=== PATIENT | male | born 1970 | race Caucasian/White ===

== ENCOUNTER 2020-08-01 09:00 | Outpatient (RCR) | payer OTHER, SELFPAY | END 2020-09-27 09:37 | disposition other institution (70) | LOC: HO.PT 09:00 | PROVIDERS: Visit Provider Hospitalist | DX: S76.111D Strain of right quadriceps muscle, fascia and tendon, subsequent encounter (principal) | CPT/HCPCS: 97110; 97112; 97140; 97162; 97530 ==

== ENCOUNTER 2020-10-20 11:35 | Outpatient (REF) | payer OTHER, SELFPAY ==
[2020-10-20 13:17] LABS: COVID-19 Test Negative (Negative)
== END 2020-10-20 11:36 | disposition home or self-care (01) ==
LOC: HO.EMPCOV 11:35
PROVIDERS: Visit Provider Internal Medicine
DX: Z20.822 Contact with and (suspected) exposure to COVID-19 (principal)
CPT/HCPCS: 36415; 87635; C9803

== ENCOUNTER 2021-08-17 11:09 | Emergency (ER) | payer OTHER, SELFPAY ==
--- NOTE | 2021-08-17 | ECG_ITS ---
Test Reason : cp Blood Pressure : / mmHG Vent. Rate : 087 BPM Atrial Rate : 087 BPM P-R Int : 150 ms QRS Dur : 076 ms QT Int : 362 ms P-R-T Axes : 059 028 057 degrees QTc Int : 435 ms Normal sinus rhythm Nonspecific ST abnormality Abnormal ECG No previous ECGs available Referred By: Generic ED Physician Electronically Signed By:Keith Arteaga
--- NOTE | ~2021-08-17 | XR_ITS ---
EXAMINATION: XR CHEST CLINICAL INFORMATION: Chest pain COMPARISON: Chest x-ray 12/30/2015 (report only) TECHNIQUE: 2 views of the chest were obtained. FINDINGS: The heart is normal in size. There is no lobar consolidation. No pleural effusion or pneumothorax. No acute osseous abnormality. XR/XR chest 2V IMPRESSION: No acute pulmonary pathology.
[2021-08-17 11:14] VITALS: BP 125/86; PULSE 75; RESP 16; TEMP 36.3; O2SAT 99; BMI 29.5
--- NOTE | 2021-08-17 11:44 | ED_ITS ---
HPI - Chest Pain General Chief Complaint: Chest Pain Stated Complaint: chest pain Time Seen by Provider: 08/17/21 11:32 Source: patient History of Present Illness HPI narrative: Patient states he has had symptoms that started yesterday. The 1st he noticed some paresthesia like symptoms in his left thigh. That resolved. He went to his daughter's basketball game and felt lightheaded as if he was going to pass out. This sensation resolved on its own. He has also been having chest discomfort that he states feels like his typical indigestion which has been constant since yesterday at about the same time. He states he feels, like a pressure. No nausea vomiting. No alleviating or exacerbating factors No history of cardiac disease. History of prediabetes blood so far has not required medication No history of smoking No significant family history of acute coronary syndrome at a young age No history of thromboembolic disease in the patient or close family members No recent changes in health status No changes in activity Related Data Allergies Allergy/AdvReac Type Severity Reaction Status Date / Time No Known Allergies Allergy Verified 08/17/21 11:23 Review of Systems Constitutional: Comments: Awake alert no acute distress Cardiovascular: Comments: Chest discomfort is described Respiratory: Comments: No dyspnea Gastrointestinal: Comments: No nausea vomiting diarrhea recently. He states he did have an episode of diarrhea last week which resolved spontaneously Musculoskeletal: Comments: No calf pain or pedal edema Neurologic: Comments: No focal weakness. Transient paresthesia left eye yesterday. He does complain of intermittent paresthesias bilateral hands PMFSH Social History Social History Alcohol intake: current Alcohol intake frequency: a few times a week Patient Tobacco Use Status: Never used Tobacco Use of substances other than those prescribed or required for medical reasons: No Advance Directives: No Advance Directives Information Provided: No Physical Exam Vital Signs: Vital Signs: Last Vital Signs Temp 97.4 F 08/17/21 11:14 Pulse 73 08/17/21 12:25 Resp 18 08/17/21 12:25 BP 137/66 08/17/21 12:25 Pulse Ox 99 08/17/21 11:14 BMI result Body Mass Index 29.5 Const: Other: Awake and alert no acute distress HENMT: Other: No obvious jugular venous distention Chest: Other: Nontender Resp: Other: Clear and equal bilaterally Cardio: Other: Regular rate and rhythm without murmurs rubs or gallops GI: Other: Soft nontender Skin: Other: Warm pink and dry without rash or jaundice Neuro: Other: Alert and oriented x3. No focal neuro deficit Extrem: Other: No pedal edema or calf tenderness Course Course Course Narrative: Patient with chest pain and extremity paresthesias. Acute coronary syndrome Pulmonary embolism Musculoskeletal pain Gastroesophageal reflux disease Anxiety EKG normal sinus rhythm without obvious ischemic changes. Will obtain old EKG from his PCP for comparison Will order cardiac workup as well as thromboembolic workup starting with D-dimer Nitroglycerin sublingual and re-evaluation Nitroglycerin without effect 14:45. Workup In the emergency department is very reassuring. Serial troponins are normal. D-dimer is normal. Thyroid studies are normal as are other labs. Patient is otherwise comfortable and stable for discharge home with a final diagnosis of paresthesias MDM - Chest Pain Lab Data Result diagrams: 08/17/21 12:01 08/17/21 12:01 Labs: Lab Results 08/17/21 08/17/21 08/17/21 Range/Units 12: 12: 12:01 WBC 6.6 (4.8-10.8) X10*3/uL RBC 4.95 (4.60-5.80) X10*6/uL Hgb 14.3 (14.0-18.0) g/dl Hct 42.0 (42.0-52.0) % MCV 84.8 (80.0-98.0) fL MCH 28.9 (27.0-33.0) pg MCHC 34.0 (31.0-36.0) g/dl RDW 12.9 (11.0-16.0) % Plt Count 197 (160-400) X10*3/uL MPV 9.9 (9.4-12.4) fL Immature Gran % (Auto) 0.3 (0.0-0.4) % Neut % (Auto) 59.4 (45-73) % Lymph % (Auto) 28.5 (20-40) % [place] % (Auto) 8.5 (2-11) % Eos % (Auto) 2.4 (0-4) % Baso % (Auto) 0.9 (0-2) % Lymph # (Auto) 1.9 (1.2-4.9) X10*3/uL [place] # (Auto) 0.6 (0.1-1.2) X10*3/uL Eos # (Auto) 0.2 (0.0-0.4) X10*3/uL Baso # (Auto) 0.1 (0.0-0.2) X10*3/uL Abs Immat Gran (auto) 0.02 (0.00-0.03) X10*3/uL Absolute Neuts (auto) 3.9 (2.0-8.3) x10*3/uL Absolute Nucleated RBC 0.000 (0.0-0.012) X10*3/uL Nucleated RBC % (auto) 0.0 (0.0-0.2) /100WBC D-Dimer High Sensitivty NG/ML Sodium 138 (135-145) mmol/L Potassium 3.8 (3.3-5.1) mmol/L Chloride 105 (96-108) mmol/L Carbon Dioxide 27 (22-29) mmol/L Anion Gap 10 L (12-20) BUN 16 (9-16) mg/dL Creatinine 1.18 (0.5-1.4) mg/dL Estim Creat Clear Calc 89.1 Estimated GFR > 60 Random Glucose 119 H (60-115) mg/dL Calcium 9.5 (8.4-10.2) mg/dL Total Bilirubin 0.9 (0.0-1.0) mg/dL AST 28 (5-37) U/L ALT 30 (0-40) U/L Alkaline Phosphatase 98 (39-117) U/L Troponin I High Sens 5.3 (<3.5-35.0) ng/L B-Natriuretic Peptide 101 H (<100) pg/mL Total Protein 6.9 (6.5-8.0) g/dL Albumin 4.2 (3.5-5.0) g/dL Lipase 22 (8-78) U/L TSH (0.32-4.0) uIU/mL COVID-19 (ZOË) (Negative) COVID-19 Clin Com 08/17/21 08/17/21 08/17/21 Range/Units 12:01 12:01 12:01 WBC (4.8-10.8) X10*3/uL RBC (4.60-5.80) X10*6/uL Hgb (14.0-18.0) g/dl Hct (42.0-52.0) % MCV (80.0-98.0) fL MCH (27.0-33.0) pg MCHC (31.0-36.0) g/dl RDW (11.0-16.0) % Plt Count (160-400) X10*3/uL MPV (9.4-12.4) fL Immature Gran % (Auto) (0.0-0.4) % Neut % (Auto) (45-73) % Lymph % (Auto) (20-40) % [place] % (Auto) (2-11) % Eos % (Auto) (0-4) % Baso % (Auto) (0-2) % Lymph # (Auto) (1.2-4.9) X10*3/uL [place] # (Auto) (0.1-1.2) X10*3/uL Eos # (Auto) (0.0-0.4) X10*3/uL Baso # (Auto) (0.0-0.2) X10*3/uL Abs Immat Gran (auto) (0.00-0.03) X10*3/uL Absolute Neuts (auto) (2.0-8.3) x10*3/uL Absolute Nucleated RBC (0.0-0.012) X10*3/uL Nucleated RBC % (auto) (0.0-0.2) /100WBC D-Dimer High Sensitivty 174 NG/ML Sodium (135-145) mmol/L Potassium (3.3-5.1) mmol/L Chloride (96-108) mmol/L Carbon Dioxide (22-29) mmol/L Anion Gap (12-20) BUN (9-16) mg/dL Creatinine (0.5-1.4) mg/dL Estim Creat Clear Calc Estimated GFR Random Glucose (60-115) mg/dL Calcium (8.4-10.2) mg/dL Total Bilirubin (0.0-1.0) mg/dL AST (5-37) U/L ALT (0-40) U/L Alkaline Phosphatase (39-117) U/L Troponin I High Sens (<3.5-35.0) ng/L B-Natriuretic Peptide (<100) pg/mL Total Protein (6.5-8.0) g/dL Albumin (3.5-5.0) g/dL Lipase (8-78) U/L TSH 1.33 (0.32-4.0) uIU/mL COVID-19 (ZOË) Negative (Negative) COVID-19 Clin Com See Note 08/17/21 Range/Units 13:38 WBC (4.8-10.8) X10*3/uL RBC (4.60-5.80) X10*6/uL Hgb (14.0-18.0) g/dl Hct (42.0-52.0) % MCV (80.0-98.0) fL MCH (27.0-33.0) pg MCHC (31.0-36.0) g/dl RDW (11.0-16.0) % Plt Count (160-400) X10*3/uL MPV (9.4-12.4) fL Immature Gran % (Auto) (0.0-0.4) % Neut % (Auto) (45-73) % Lymph % (Auto) (20-40) % [place] % (Auto) (2-11) % Eos % (Auto) (0-4) % Baso % (Auto) (0-2) % Lymph # (Auto) (1.2-4.9) X10*3/uL [place] # (Auto) (0.1-1.2) X10*3/uL Eos # (Auto) (0.0-0.4) X10*3/uL Baso # (Auto) (0.0-0.2) X10*3/uL Abs Immat Gran (auto) (0.00-0.03) X10*3/uL Absolute Neuts (auto) (2.0-8.3) x10*3/uL Absolute Nucleated RBC (0.0-0.012) X10*3/uL Nucleated RBC % (auto) (0.0-0.2) /100WBC D-Dimer High Sensitivty NG/ML Sodium (135-145) mmol/L Potassium (3.3-5.1) mmol/L Chloride (96-108) mmol/L Carbon Dioxide (22-29) mmol/L Anion Gap (12-20) BUN (9-16) mg/dL Creatinine (0.5-1.4) mg/dL Estim Creat Clear Calc Estimated GFR Random Glucose (60-115) mg/dL Calcium (8.4-10.2) mg/dL Total Bilirubin (0.0-1.0) mg/dL AST (5-37) U/L ALT (0-40) U/L Alkaline Phosphatase (39-117) U/L Troponin I High Sens 4.3 (<3.5-35.0) ng/L B-Natriuretic Peptide (<100) pg/mL Total Protein (6.5-8.0) g/dL Albumin (3.5-5.0) g/dL Lipase (8-78) U/L TSH (0.32-4.0) uIU/mL COVID-19 (ZOË) (Negative) COVID-19 Clin Com Discharge Plan Discharge Clinical Impression: Atypical chest pain, Arm paresthesia, left, Arm paresthesia, right Patient Disposition: Home, Self-Care Instructions: Paresthesia (ED), Chest Pain (ED)
[2021-08-17] MEDS: 0.9 % Sodium Chloride 500 ML IV (12:03)
[2021-08-17 12:09] LABS: MANUAL DIFF FLAG NO
[2021-08-17] MEDS: Nitroglycerin 0.4 MG TAB.SUBL SUBLINGUAL (12:09)
[2021-08-17 12:16] LABS: Basophils Absolute Auto 0.1 X10*3/uL (0.0-0.2); Basophils Percent Auto 0.9 % (0-2); Eosinophils Absolute Auto 0.2 X10*3/uL (0.0-0.4); Eosinophils Percent Auto 2.4 % (0-4); Hemoglobin 14.3 g/dl (14.0-18.0); Imm Gran Abs Auto 0.02 X10*3/uL (0.00-0.03); Imm Gran Pct Auto 0.3 % (0.0-0.4); Lymphocytes Absolute Auto 1.9 X10*3/uL (1.2-4.9); Lymphocytes Percent Auto 28.5 % (20-40); Mean Corpuscular Hemoglobin 28.9 pg (27.0-33.0); Mean Corpuscular Volume 84.8 fL (80.0-98.0); Mean Platelet Volume 9.9 fL (9.4-12.4); Monocytes Absolute Auto 0.6 X10*3/uL (0.1-1.2); Monocytes Percent Auto 8.5 % (2-11); Neutrophils Absolute Auto 3.9 x10*3/uL (2.0-8.3); Neutrophils Percent Auto 59.4 % (45-73); Platelet Count 197 X10*3/uL (160-400); Red Blood Count 4.95 X10*6/uL (4.60-5.80); Red Cell Distribution Width 12.9 % (11.0-16.0); White Blood Count 6.6 X10*3/uL (4.8-10.8)
[2021-08-17 12:18] LABS: D Dimer High Sensitivity 174 NG/ML
[2021-08-17 12:25] VITALS: BP 137/66; PULSE 73; RESP 18
--- NOTE | 2021-08-17 12:25 | PC.NURSE ---
pt reports no change in the chest pain/pressure after the first nitro, pain at 4/10
[2021-08-17 12:30] LABS: Alanine Aminotransferase 30 U/L (0-40); Albumin Level 4.2 g/dL (3.5-5.0); Alkaline Phosphatase 98 U/L (39-117); Anion Gap 10 (12-20); Aspartate Amino Transferase 28 U/L (5-37); Bilirubin Total 0.9 mg/dL (0.0-1.0); Blood Urea Nitrogen 16 mg/dL (9-16); Calcium 9.5 mg/dL (8.4-10.2); Carbon Dioxide 27 mmol/L (22-29); Chloride 105 mmol/L (96-108); Creatinine Clr Calc Pharmacy 89.1; Estimated Glomerular Filt Rate > 60; Glucose Random 119 mg/dL (60-115); Lipase 22 U/L (8-78); Potassium 3.8 mmol/L (3.3-5.1); Sodium 138 mmol/L (135-145); Total Protein 6.9 g/dL (6.5-8.0)
[2021-08-17 12:33] LABS: COVID-19 Test Negative (Negative); IDNOW Serial# 9DD0AD1C
[2021-08-17 12:34] LABS: B Type Natriuretic Peptide 101 pg/mL (<100); Troponin-I High Sensitivity 5.3 ng/L (<3.5-35.0)
[2021-08-17 12:49] LABS: TSH reflex Free T4 1.33 uIU/mL (0.32-4.0)
[2021-08-17] MEDS: Magnesium Hydrox/Alum Hydrox 30 ML ORAL.SUSP PO (12:51)
[2021-08-17] MEDS: Lidocaine HCl Viscous 2 % 15 ML SOLUTION PO (12:51)
[2021-08-17 14:20] LABS: Troponin-I High Sensitivity 4.3 ng/L (<3.5-35.0)
[2021-08-17 15:15] VITALS: BP 125/69; PULSE 68; RESP 15; TEMP 36.6; O2SAT 97
== END 2021-08-17 15:52 | disposition home or self-care (01) ==
PROVIDERS: Emergency Provider Emergency Medicine; PCP Hospitalist
DX: R07.89 Other chest pain (principal); R20.2 Paresthesia of skin; Z20.822 Contact with and (suspected) exposure to COVID-19
CPT/HCPCS: 36415; 71046; 80053; 83690; 83880; 84443; 84484; 85025; 85379; 87635; 93005; 96360; 99284; 99285

== ENCOUNTER 2022-06-15 08:45 | Outpatient (REF) | payer OTHER, SELFPAY ==
[2022-06-15 09:41] LABS: Estimated Average Glucose 117 mg/dL; Hemoglobin A1C 151.4117 umol/L; Hemoglobin A1c % 5.7 %
[2022-06-15 10:28] LABS: Anion Gap 11 (12-20); Chloride 107 mmol/L (96-108); Prostate Specific Antigen 1.66 ng/mL (<0.05-4.0)
[2022-06-15 10:31] LABS: Alanine Aminotransferase 36 U/L (0-40); Albumin Level 4.2 g/dL (3.5-5.0); Alkaline Phosphatase 98 U/L (39-117); Aspartate Amino Transferase 27 U/L (5-37); Bilirubin Total 0.5 mg/dL (0.0-1.0); Blood Urea Nitrogen 17 mg/dL (9-16); Calcium 9.2 mg/dL (8.4-10.2); Carbon Dioxide 27 mmol/L (22-29); Cholesterol 237 mg/dL; Estimated Glomerular Filt Rate > 60; Glucose Random 103 mg/dL (60-115); HDL Cholesterol 36 mg/dL; LDL Cholesterol Calculated 149 mg/dl; Potassium 4.1 mmol/L (3.3-5.1); Sodium 141 mmol/L (135-145); Total Protein 6.8 g/dL (6.5-8.0); Triglycerides 264 mg/dL; Uric Acid 4.5 mg/dL (3.4-7.0)
== END 2022-06-15 08:46 | disposition home or self-care (01) ==
LOC: HO.LAB 08:45
PROVIDERS: Visit Provider Family Medicine
DX: Z00.00 Encounter for general adult medical examination without abnormal findings (principal); M10.9 Gout, unspecified; E78.5 Hyperlipidemia, unspecified; Z12.5 Encounter for screening for malignant neoplasm of prostate
CPT/HCPCS: 36415; 80053; 80061; 83036; 84153; 84550

== ENCOUNTER 2023-04-28 12:25 | Outpatient (REF) | payer OTHER, SELFPAY ==
[2023-04-28 12:50] LABS: MANUAL DIFF FLAG NO
[2023-04-28 13:43] LABS: Basophils Absolute Auto 0.1 X10*3/uL (0.0-0.2); Basophils Percent Auto 1.1 % (0-2); Eosinophils Absolute Auto 0.1 X10*3/uL (0.0-0.4); Eosinophils Percent Auto 2.2 % (0-4); Hematocrit 43.3 % (42.0-52.0); Hemoglobin 14.8 g/dl (14.0-18.0); Imm Gran Abs Auto 0.02 X10*3/uL (0.00-0.03); Imm Gran Pct Auto 0.4 % (0.0-0.4); Lymphocytes Absolute Auto 1.1 X10*3/uL (1.2-4.9); Lymphocytes Percent Auto 23.2 % (20-40); Mean Corpuscular HGB Conc 34.2 g/dl (31.0-36.0); Mean Corpuscular Hemoglobin 29.3 pg (27.0-33.0); Mean Corpuscular Volume 85.7 fL (80.0-98.0); Mean Platelet Volume 10.5 fL (9.4-12.4); Monocytes Absolute Auto 0.5 X10*3/uL (0.1-1.2); Monocytes Percent Auto 10.3 % (2-11); Neutrophils Absolute Auto 2.9 x10*3/uL (2.0-8.3); Neutrophils Percent Auto 62.8 % (45-73); Platelet Count 189 X10*3/uL (160-400); Red Blood Count 5.05 X10*6/uL (4.60-5.80); Red Cell Distribution Width 12.9 % (11.0-16.0); White Blood Count 4.6 X10*3/uL (4.8-10.8)
[2023-04-28 14:55] LABS: Alanine Aminotransferase 34 U/L (0-40); Aspartate Amino Transferase 29 U/L (5-37); Estimated Glomerular Filt Rate > 60; Uric Acid 4.8 mg/dL (3.4-7.0)
== END 2023-04-28 12:26 | disposition home or self-care (01) ==
LOC: HO.LAB 12:25
PROVIDERS: Visit Provider Internal Medicine Rheumatology
DX: M10.9 Gout, unspecified (principal)
CPT/HCPCS: 36415; 82565; 84450; 84460; 84550; 85025

== ENCOUNTER 2023-06-29 07:54 | Outpatient (REF) | payer OTHER, SELFPAY ==
[2023-06-29 08:15] LABS: MANUAL DIFF FLAG NO
[2023-06-29 09:10] LABS: Basophils Absolute Auto 0.1 X10*3/uL (0.0-0.2); Basophils Percent Auto 1.1 % (0-2); Eosinophils Absolute Auto 0.2 X10*3/uL (0.0-0.4); Eosinophils Percent Auto 3.2 % (0-4); Hematocrit 44.6 % (42.0-52.0); Hemoglobin 15.1 g/dl (14.0-18.0); Imm Gran Abs Auto 0.03 X10*3/uL (0.00-0.03); Imm Gran Pct Auto 0.5 % (0.0-0.4); Lymphocytes Absolute Auto 1.7 X10*3/uL (1.2-4.9); Lymphocytes Percent Auto 30.6 % (20-40); Mean Corpuscular HGB Conc 33.9 g/dl (31.0-36.0); Mean Corpuscular Volume 85.6 fL (80.0-98.0); Mean Platelet Volume 10.5 fL (9.4-12.4); Monocytes Absolute Auto 0.5 X10*3/uL (0.1-1.2); Monocytes Percent Auto 8.5 % (2-11); Neutrophils Absolute Auto 3.2 x10*3/uL (2.0-8.3); Neutrophils Percent Auto 56.1 % (45-73); Platelet Count 202 X10*3/uL (160-400); Red Blood Count 5.21 X10*6/uL (4.60-5.80); Red Cell Distribution Width 13.2 % (11.0-16.0); White Blood Count 5.6 X10*3/uL (4.8-10.8)
[2023-06-29 09:47] LABS: Alanine Aminotransferase 29 U/L (0-40); Alkaline Phosphatase 94 U/L (39-117); Anion Gap 12 (12-20); Aspartate Amino Transferase 25 U/L (5-37); Bilirubin Total 0.7 mg/dL (0.0-1.0); Blood Urea Nitrogen 19 mg/dL (9-16); Calcium 9.5 mg/dL (8.4-10.2); Carbon Dioxide 26 mmol/L (22-29); Chloride 107 mmol/L (96-108); Cholesterol 225 mg/dL (<200); Estimated Glomerular Filt Rate > 60; Glucose Random 109 mg/dL (60-115); HDL Cholesterol 52 mg/dL (>40); LDL Cholesterol Calculated 143 mg/dL (<100); Potassium 4.2 mmol/L (3.3-5.1); Sodium 141 mmol/L (135-145); Triglycerides 153 mg/dL (<150)
== END 2023-06-29 07:55 | disposition home or self-care (01) ==
LOC: HO.LAB 07:54
PROVIDERS: Visit Provider Family Medicine
DX: Z00.00 Encounter for general adult medical examination without abnormal findings (principal); Z12.5 Encounter for screening for malignant neoplasm of prostate; E78.5 Hyperlipidemia, unspecified; R07.89 Other chest pain
CPT/HCPCS: 36415; 80053; 80061; 84153; 85025

== ENCOUNTER → 2023-07-08 08:48 | Outpatient (REF) | payer OTHER, SELFPAY ==
--- NOTE | 2023-07-08 08:52 | CA_ITS ---
Acquisition Time: 2023-07-08 09:14:12 Total Exercise Time: 00:09:39 Test Indications: CP Medications: SEE H Protocol: TAN Max HR: 142 BPM 85% of Pred: 166 BPM Max BP: 138/078 mmHG Max Work Load: 11.1 METS Exercisde stress trest with exercise 9 min 39 sec of Tan protocol, achieving 85% MPHR, without anginal symptoms, with isolated PACs during exercise then frequent PACs and short atrial runs, up to 3 beats, in recovery ( patient reports this is the heart palpitations that he feels at times), with normotensive response to exercise, with EKG changes meeting criteria for ischemia: 1.5 - [address] depression inferiorly and V5-V6 with gradual improvement in recovery. Test reviewed with Dr Cho. Referred By: Titus Sims Overread By: RADHA PITT
== END ==
LOC: HO.CARD 08:48
PROVIDERS: PCP Hospitalist; Visit Provider Family Medicine
DX: R07.89 Other chest pain (principal); E78.5 Hyperlipidemia, unspecified
CPT/HCPCS: 93005; 93017

== ENCOUNTER 2023-07-08 13:36 | Outpatient (AMB) | payer OTHER, SELFPAY ==
[2023-07-08 13:39] VITALS: BP 140/60; PULSE 66; BMI 30.1
--- NOTE | 2023-07-08 13:39 | A.OFFVIS_ITS ---
Intake Vital Signs 07/08/23 13:39 Height 6 ft Weight 222 lb 3.615 oz BMI 30.1 BP 140/60 H Blood Pressure Location Lt brachial Position Sitting Pulse 66 Intake Visit Reasons: NPV/abnormal stress test Intake Note: NPV/ pt its feeling ok Stores Clerk Required: No Accompanied by: Self / Same As Patient Allergies No Known Allergies Allergy (Verified 08/17/21 11:23) Medication List - Last Reconciled 07/08/23 by Moses Cho MD allopurinol 300 mg PO DAILY HPI HPI Comments History of Present Illness Details Javier is here for consultation regarding an abnormal stress test. It seems that he has had chest pains going back many years. It was always felt that it was gastric in nature any takes things like baking soda and generally makes him feel better. These pains happen during times of anxiety, dietary intake extra. Has never happened with exertion. In fact when he is actually doing something physical he states the pain gets better goes away. Any case, he was referred for a stress test and he did not have any chest pain during the stress test but there was clear-cut ST depression and hence it was reported as abnormal and referred here for urgent consultation. Patient himself does not have any coronary disease or myocardial infarction or cardiomyopathy or in fact any other cardiac issues in the past. He states he has a large extended family and lot of them do have cardiac issues. However, nothing significant from coronary standpoint in the first-degree relatives. Otherwise, he exercise regularly and for the most part he feels fine apart from some muscle aches from pulling/pushing weight is extra. He also feels some palpitations off and on and he feels that that started after COVID. Overall, he is quite concerned about the stress test and any cardiac complications. [facility] Family History (Updated 07/08/23 @ 14:04 by Moses Cho MD) Father Atrial fibrillation Mother Parkinson disease Social History Alcohol intake: current Alcohol intake frequency: a few times a week Patient Tobacco Use Status: Never used Tobacco Review of Systems Const Reports chills, Reports fatigue, Reports fever(s), Reports frequent falls, Reports weakness, Reports weight gain and Reports weight loss ENT Reports dizziness Card Reports chest pain, Reports leg edema, Reports lightheadedness, Reports palpitations, Reports dyspnea, Reports dyspnea on exertion and Reports orthopnea Resp Reports cough, Reports dyspnea and Reports dyspnea on exertion GI Reports bloating and Reports change in bowel habits Musc Reports muscle weakness, Reports numbness and Reports tingling Neuro Reports dizziness, Reports frequent falls, Reports numbness, Reports tingling and Reports weakness Endo Reports fatigue and Reports palpitations Physical Exam Vital Signs: Last Vital Signs Pulse 66 07/08/23 13:39 BP 140/60 H 07/08/23 13:39 BMI result Body Mass Index 30.1 Const General: comfortable and no acute distress Orientation/consciousness: patient oriented x3 HEENT Other: Unremarkable Head: Yes normal to inspection Neck Neck: Yes normal visual inspection Chest Chest palpation & inspection: normal inspection of the chest Resp Auscultation: clear to auscultation bilaterally Cardio Palpation: normal PMI Heart sounds: S1 normal heart sound present, S2 normal heart sound present, no gallops, no murmurs and no rubs GI Palpation (GI): Soft to palpation Back/Spine/Pelvis Other: unremarkable Skin General skin exam: no rashes or lesions noted Neuro General: patient oriented x3 Extrem General: Yes normal to inspection Psych Mental Status: mental status grossly normal Office Procedures EKG Details: EKG with sinus rhythm at 66/Min; nonspecific ST-T changes; [place] [id number], Complete Assessment & Plan Assessment & Plan (1) Precordial chest pain: Code(s): R07.2 - Precordial pain (2) Abnormal stress test: Code(s): R94.39 - Abnormal result of other cardiovascular function study Plan His chest pain is atypical and nonexertional and not consistent with angina. I reviewed the exercise stress test including the EKG strips. There is significant ST depression noted during peak exercise but it starts some time in stage II. Also seen in early recovery. There were also some PACs. Findings discussed with patient. There is a mismatch between the symptoms and the EKG findings as he had absolutely no chest pain and in fact was able to exercise for 11.1 METS. Even otherwise, his chest pain description is not consistent with angina and he actually feels better with activity. We discussed about further options. Recommend coronary CTA but he is not comfortable waiting for a few weeks as he states he gets extremely anxious. Hence we can plan to start with an exercise stress echocardiogram as next step which would be quicker. Based on findings, we will decide if we need to also pursue coronary CTA or not. Will also complete a transthoracic echocardiogram for LV function, valvular assessment and aorta. Will arrange follow-up after these are completed. Patient is comfortable this plan. While testing is being completed, advised to avoid any strenuous physical activity. With regard to the palpitations, probably from supraventricular ectopy. We can assess that with a Holter in due course. Orders: Orders CA echo stress exercise Today R07.2 - Precordial pain CA echo transthoracic complete Today I25.10 - Atherosclerotic heart disease of [place] coronary artery without angina pectoris, R07.2 - Precordial pain Coding Level of Care Code New Pt Level 4 (30536) Diagnoses Precordial chest pain R07.2 Abnormal stress test R94.39 CPT Codes EKG - CPT: 69727-[id number], Complete ([id number])
== END 2023-07-08 14:07 | disposition home or self-care (01) ==
PROVIDERS: PCP Hospitalist; Visit Provider Internal Medicine
DX: R07.2 Precordial pain (principal); R94.39 Abnormal result of other cardiovascular function study; R94.31 Abnormal electrocardiogram [ECG] [EKG]; I49.1 Atrial premature depolarization
CPT/HCPCS: 93010; 93016; 93018; 99204

== ENCOUNTER → 2023-07-13 08:58 | Outpatient (REF) | payer OTHER, SELFPAY | LOC: HO.CARD 08:58 | PROVIDERS: PCP Family Medicine; Visit Provider Internal Medicine | DX: R07.2 Precordial pain (principal); I25.10 Atherosclerotic heart disease of native coronary artery without angina pectoris | CPT/HCPCS: 93306; 93356 ==

== ENCOUNTER → 2023-07-13 09:00 | Outpatient (BNV) | payer OTHER, SELFPAY | PROVIDERS: PCP Family Medicine; Visit Provider Internal Medicine Cardiovascular Disease | DX: I35.1 Nonrheumatic aortic (valve) insufficiency (principal) | CPT/HCPCS: 93306 ==

== ENCOUNTER → 2023-07-18 10:51 | Outpatient (REF) | payer OTHER, SELFPAY ==
--- NOTE | 2023-07-18 10:53 | CA_ITS ---
Acquisition Time: 2023-07-18 11:02:06 Total Exercise Time: 00:13:04 Test Indications: ABN ETT Medications: SEE H Protocol: TAN Max HR: 155 BPM 93% of Pred: 166 BPM Max BP: 172/058 mmHG Max Work Load: 15.2 METS Exercise stress test exercise 13 min 4 sec of Tan protocol achieving 93% MPHR, without anginal symptoms, with isolated PACs, with normotensive response to exercise, with horizontal depressions in lead 2, 3, aVF, & V4 and downsloping in V5-V6. Echo images obtained by tech at rest and immedateily post peak exercise. Definity contrast used. Test reviewed with Dr. Phillips Referred By: Moses Cho Overread By: Hilda Lamb
== END ==
LOC: HO.CARD 10:51
PROVIDERS: PCP Family Medicine; Visit Provider Internal Medicine
DX: R07.2 Precordial pain (principal)
CPT/HCPCS: 93350; Q9957

== ENCOUNTER → 2023-07-18 10:53 | Outpatient (BNV) | payer OTHER, SELFPAY | PROVIDERS: PCP Family Medicine; Visit Provider Nurse Practitioner | DX: R94.39 Abnormal result of other cardiovascular function study (principal) | CPT/HCPCS: 93350 ==

== ENCOUNTER 2023-07-21 10:41 | Outpatient (AMB) | payer OTHER, SELFPAY ==
[2023-07-21 10:44] VITALS: BP 142/70; PULSE 68; BMI 29.8
--- NOTE | 2023-07-21 10:44 | A.OFFVIS_ITS ---
Intake Vital Signs 07/21/23 10:44 Height 6 ft Weight 220 lb 0.341 oz BMI 29.8 BP 142/70 H Blood Pressure Location Lt brachial Position Sitting Pulse 68 Intake Visit Reasons: follow up Intake Note: follow up Pest Controller Required: No Accompanied by: Self / Same As Patient Allergies No Known Allergies Allergy (Verified 07/21/23 10:45) Medication List - Last Reconciled 07/21/23 by Moses Cho MD allopurinol 300 mg PO DAILY HPI HPI Comments History of Present Illness Details Javier returns for follow-up. Recently seen in consultation regarding abnormal stress test. It seems that he has had chest pains going back many years. It was always felt that it was gastric in nature any takes things like baking soda and generally makes him feel better. These pains happen during times of anxiety, dietary intake extra. Has never happened with exertion. In fact when he is actually doing something physical he states the pain gets better and goes away. Any case, he was referred for a stress test and he did not have any chest pain during the stress test but there was clear-cut ST depression and hence it was reported as abnormal and referred here for urgent consultation. Patient himself does not have any coronary disease or myocardial infarction or cardiomyopathy or in fact any other cardiac issues in the past. He states he h as a large extended family and lot of them do have cardiac issues. However, nothing significant from coronary standpoint in the first-degree relatives. Otherwise, he exercise regularly and for the most part he feels fine apart from some muscle aches from pulling/pushing weight is extra. He also feels some palpitations off and on and he feels that that started after COVID. Since last seen, he has completed a 2D echocardiogram as well as stress echocardiogram. No new issues. [facility] Surgical History (Updated 07/21/23 @ 10:45 by Li Pino) No pertinent past surgical history Family History Father Atrial fibrillation Mother Parkinson disease Social History Alcohol intake: current Alcohol intake frequency: a few times a week Patient Tobacco Use Status: Never used Tobacco Review of Systems Const Denies weakness ENT Denies dizziness Card Denies chest pain, Denies chest pain with activity, Denies syncope, Denies rapid heart rate, Denies pedal edema, Denies edema, Denies leg edema, Denies lightheadedness, Denies palpitations, Denies dyspnea, Denies dyspnea on exertion and Denies orthopnea Resp Denies cough, Denies dyspnea and Denies dyspnea on exertion GI Denies hematochezia and Denies change in stool character Musc Denies abnormal gait, Denies muscle cramps, Denies muscle weakness, Denies numbness, Denies radiating pain into limb and Denies tingling Neuro Denies abnormal gait, Denies dizziness, Denies syncope, Denies numbness, Denies tingling and Denies weakness Endo Denies palpitations Physical Exam Vital Signs: Last Vital Signs Pulse 68 07/21/23 10:44 BP 142/70 H 07/21/23 10:44 BMI result Body Mass Index 29.8 Const General: comfortable and no acute distress Orientation/consciousness: patient oriented x3 HEENT Other: Unremarkable Head: Yes normal to inspection Neck Neck: Yes normal visual inspection Chest Chest palpation & inspection: normal inspection of the chest Resp Auscultation: clear to auscultation bilaterally Cardio Palpation: normal PMI Heart sounds: S1 normal heart sound present, S2 normal heart sound present, no gallops, no murmurs and no rubs GI Palpation (GI): Soft to palpation Back/Spine/Pelvis Other: unremarkable Skin General skin exam: no rashes or lesions noted Neuro General: patient oriented x3 Extrem General: Yes normal to inspection Psych Mental Status: mental status grossly normal Assessment & Plan Assessment & Plan (1) Precordial chest pain: Code(s): R07.2 - Precordial pain (2) Abnormal stress test: Code(s): R94.39 - Abnormal result of other cardiovascular function study (3) Ascending aorta dilatation: Code(s): I77.810 - Thoracic aortic ectasia Plan Clinically, his chest pain is atypical and nonexertional and not consistent with angina. In the transthoracic echocardiogram, LVEF of 60-65%. Mild left ventricle hypertrophy. Normal peak global longitudinal strain. There is description of inferior wall motion abnormality but upon my review I think it is within normal limits. In the exercise stress echocardiogram, he did almost 15 METS on Tor protocol. He did not have any angina. There were ST-T changes in the EKG with depression but the echocardiographic component did not show any suggestion of stress- induced wall motion abnormality. Diastolic parameters showed appropriate changes with exercise. At rest, there was borderline pulmonary artery pressure and there was slight increase with exercise but not worrisome. Overall, he does have some baseline ST-T changes in the EKG which gets worse with exercise but no clinical or echocardiographic evidence of obstructive CAD. As he is still concerned about any possibility of underlying CAD due to the EKG findings, we will proceed with coronary CTA for further evaluation. Additionally, there is evidence of slight LVH which could be related to history of obesity in the past. Also he might just have some anxiety causing high blood pressures in the office but he can check them at home to ensure there is no resting hypertension. On the echocardiogram, there is also slight aortic dilatation at 4 cm. Again we went over this in detail. Can get coronary CTA as above which should also image the aorta as well. Because of the slight pulmonary hypertension, snoring at nighttime, get a home sleep study. Patient agreeable with the above plan. We can see him back after testing. Total time spent including review of data, counseling, documentation, coordination of care-34 minutes. Orders: Orders RT home sleep study Today G47.33 - Obstructive sleep apnea (adult) (pediatric) CT Cardiac Coronary Angio Today I25.10 - Atherosclerotic heart disease of [place] coronary artery without angina pectoris, I77.810 - Thoracic aortic ectasia Coding Level of Care Code Est Pt Level 4 (60477) Diagnoses Precordial chest pain R07.2 Abnormal stress test R94.39 Ascending aorta dilatation I77.810
== END 2023-07-21 11:13 | disposition home or self-care (01) ==
PROVIDERS: PCP Family Medicine; Visit Provider Internal Medicine
DX: R07.2 Precordial pain (principal); R94.39 Abnormal result of other cardiovascular function study; I77.810 Thoracic aortic ectasia
CPT/HCPCS: 99214

== ENCOUNTER → 2023-07-21 10:41 | Outpatient (BNVA) | payer OTHER, SELFPAY | PROVIDERS: PCP Family Medicine; Visit Provider Internal Medicine ==

== ENCOUNTER → 2023-07-26 13:33 | Outpatient (REF) | payer OTHER, SELFPAY | LOC: HO.SL 13:33 | PROVIDERS: PCP Family Medicine; Visit Provider Internal Medicine | DX: G47.33 Obstructive sleep apnea (adult) (pediatric) (principal) | CPT/HCPCS: 95806 ==

== ENCOUNTER → 2023-07-26 13:55 | Outpatient (BNV) | payer OTHER, SELFPAY | PROVIDERS: PCP Family Medicine; Visit Provider Internal Medicine | DX: R06.83 Snoring (principal) | CPT/HCPCS: 95806 ==

== ENCOUNTER → 2023-08-22 11:08 | Outpatient (REF) | payer OTHER, SELFPAY | LOC: HO.SL 11:08 | PROVIDERS: Visit Provider Internal Medicine | DX: R06.83 Snoring (principal) | CPT/HCPCS: 95806 ==

== ENCOUNTER → 2023-08-22 11:15 | Outpatient (BNV) | payer OTHER, SELFPAY | PROVIDERS: Visit Provider Internal Medicine | DX: R06.83 Snoring (principal) | CPT/HCPCS: 95806 ==

== ENCOUNTER 2023-09-05 13:25 | Outpatient (AMB) | payer OTHER, SELFPAY ==
--- NOTE | 2023-09-05 13:27 | A.OFFVIS_ITS ---
Intake Vital Signs 09/05/23 13:29 Height 6 ft Weight 220 lb 0.341 oz BMI 29.8 BP 120/68 Blood Pressure Location Lt brachial Position Sitting Pulse 69 Intake Visit Reasons: follow up testing Intake Note: follow up Accompanied by: Self / Same As Patient Allergies No Known Allergies Allergy (Verified 09/05/23 13:29) Medication List - Last Reconciled 09/05/23 by Moses Cho MD allopurinol 300 mg PO DAILY HPI HPI Comments History of Present Illness Details Javier returns for follow-up. Recently seen in consultation regarding abnormal stress test. It seems that he has had chest pains going back many years. It was always felt that it was gastric in nature as when he takes things like baking soda it generally makes him feel better. These pains happen during times of anxiety, dietary intake extra. Has never happened with exertion. In fact when he is actually doing something physical he states the pain gets better and goes away. Any case, he was referred for a stress test and he did not have any chest pain during the stress test but there was clear-cut ST depression and hence it was reported as abnormal and referred here for urgent consultation. He has had a fairly comprehensive workup including an exercise stress echocardiogram as well as coronary CTA. Overall, feels fine. Somewhat anxious about the results. [facility] Medical History (Updated 09/05/23 @ 13:58 by Moses Cho MD) Atherosclerotic cardiovascular disease Surgical History No pertinent past surgical history Family History Father Atrial fibrillation Mother Parkinson disease Social History Alcohol intake: current Alcohol intake frequency: a few times a week Patient Tobacco Use Status: Never used Tobacco Review of Systems Const Denies weakness ENT Denies dizziness Card Denies chest pain, Denies chest pain with activity, Denies syncope, Denies rapid heart rate, Denies pedal edema, Denies edema, Denies leg edema, Denies lightheadedness, Denies dyspnea, Denies dyspnea on exertion and Denies orthopnea Resp Denies cough, Denies dyspnea and Denies dyspnea on exertion GI Denies hematochezia and Denies change in stool character Musc Denies abnormal gait, Denies muscle cramps, Denies muscle weakness, Denies numbness, Denies radiating pain into limb and Denies tingling Neuro Denies abnormal gait, Denies dizziness, Denies syncope, Denies numbness, Denies tingling and Denies weakness Physical Exam Vital Signs: Last Vital Signs Pulse 69 09/05/23 13:29 BP 120/68 09/05/23 13:29 BMI result Body Mass Index 29.8 Const General: comfortable and no acute distress Orientation/consciousness: patient oriented x3 HEENT Other: Unremarkable Head: Yes normal to inspection Neck Neck: Yes normal visual inspection Chest Chest palpation & inspection: normal inspection of the chest Resp Auscultation: clear to auscultation bilaterally Cardio Palpation: normal PMI Heart sounds: S1 normal heart sound present, S2 normal heart sound present, no gallops, no murmurs and no rubs GI Palpation (GI): Soft to palpation Back/Spine/Pelvis Other: unremarkable Skin General skin exam: no rashes or lesions noted Neuro General: patient oriented x3 Extrem General: Yes normal to inspection Psych Mental Status: mental status grossly normal Assessment & Plan Assessment & Plan (1) Atherosclerotic cardiovascular disease: Code(s): I25.10 - Atherosclerotic heart disease of [place] coronary artery without angina pectoris (2) Abnormal stress test: Code(s): R94.39 - Abnormal result of other cardiovascular function study (3) Ascending aorta dilatation: Code(s): I77.810 - Thoracic aortic ectasia (4) Snoring: Code(s): R06.83 - Snoring Plan Cardiac studies reviewed. In the transthoracic echocardiogram, LVEF of 60-65%. Mild left ventricle hypertrophy. Normal peak global longitudinal strain. There is description of inferior wall motion abnormality but upon my review I think it is within normal limits. In the exercise stress echocardiogram, he did almost 15 METS on Tor protocol. He did not have any angina. There were ST-T changes in the EKG with depression but the echocardiographic component did not show any suggestion of stress- induced wall motion abnormality. Diastolic parameters showed appropriate changes with exercise. At rest, there was borderline pulmonary artery pressure and there was slight increase with exercise but not worrisome. In the coronary CTA, 40% lad stenosis related to a non calcific plaque-after D2 takeoff. Proximal RCA with less than 20% stenosis. Similar finding in mid/distal RCA junction. FFR was unremarkable overall. Findings discussed with patient. Treat for stable CAD and start statins. He is agreeable. We can check lipids and LFTs in about 3 months or so. Ascending aortic size on the echocardiogram was 4 cm. In the CTA, 3.9/3.8 cm. Overall, borderline and reasonable for his height and weight. We could recheck this in a couple of years or so. Otherwise, borderline pulmonary artery pressures could be related to weight and possible SHWETHA. Will review the sleep study results. If necessary, refer to sleep Medicine. Will follow-up in 1 year. He will keep us posted with any developments interim or any other concerns. Orders: Orders Liver Panel 3 Months I25.10 - Atherosclerotic heart disease of [place] coronary artery without angina pectoris Lipid Panel 3 Months E78.5 - Hyperlipidemia, unspecified Medications: New rosuvastatin (Crestor) 20 mg PO DAILY 90 tabs 3RF Coding Level of Care Code Est Pt Level 4 (66808) Diagnoses Atherosclerotic cardiovascular disease I25.10 Abnormal stress test R94.39 Ascending aorta dilatation I77.810 Snoring R06.83
[2023-09-05 13:29] VITALS: BP 120/68; PULSE 69; BMI 29.8
== END 2023-09-05 13:58 | disposition home or self-care (01) ==
PROVIDERS: Visit Provider Internal Medicine
DX: I25.10 Atherosclerotic heart disease of native coronary artery without angina pectoris (principal); R94.39 Abnormal result of other cardiovascular function study; I77.810 Thoracic aortic ectasia; R06.83 Snoring
CPT/HCPCS: 99214

== ENCOUNTER → 2023-09-05 13:25 | Outpatient (BNVA) | payer OTHER, SELFPAY | PROVIDERS: Visit Provider Internal Medicine ==

== ENCOUNTER 2023-12-20 07:30 | Outpatient (REF) | payer OTHER, SELFPAY ==
[2023-12-20 08:45] LABS: Alanine Aminotransferase 38 U/L (0-40); Albumin Level 4.2 g/dL (3.5-5.0); Alkaline Phosphatase 96 U/L (39-117); Aspartate Amino Transferase 32 U/L (5-37); Bilirubin Direct 0.2 mg/dL (0.0-0.5); Bilirubin Total 0.7 mg/dL (0.0-1.0); Cholesterol 129 mg/dL (<200); HDL Cholesterol 51 mg/dL (>40); LDL Cholesterol Calculated 56 mg/dL (<100); Total Protein 6.9 g/dL (6.5-8.0); Triglycerides 113 mg/dL (<150)
== END 2023-12-20 07:31 | disposition home or self-care (01) ==
LOC: HO.LAB 07:30
PROVIDERS: PCP Family Medicine; Visit Provider Internal Medicine
DX: I25.10 Atherosclerotic heart disease of native coronary artery without angina pectoris (principal); E78.5 Hyperlipidemia, unspecified
CPT/HCPCS: 36415; 80061; 80076

== ENCOUNTER 2024-05-14 13:51 | Outpatient (REF) | payer OTHER, SELFPAY ==
[2024-05-14 14:04] LABS: MANUAL DIFF FLAG NO
[2024-05-14 15:22] LABS: Basophils Absolute Auto 0.1 X10*3/uL (0.0-0.2); Basophils Percent Auto 0.9 % (0-2); Eosinophils Absolute Auto 0.1 X10*3/uL (0.0-0.4); Eosinophils Percent Auto 2.5 % (0-4); Hematocrit 44.3 % (42.0-52.0); Hemoglobin 15.4 g/dl (14.0-18.0); Imm Gran Abs Auto 0.01 X10*3/uL (0.00-0.03); Imm Gran Pct Auto 0.2 % (0.0-0.4); Lymphocytes Absolute Auto 1.6 X10*3/uL (1.2-4.9); Lymphocytes Percent Auto 29.1 % (20-40); Mean Corpuscular HGB Conc 34.8 g/dl (31.0-36.0); Mean Corpuscular Hemoglobin 29.2 pg (27.0-33.0); Mean Corpuscular Volume 83.9 fL (80.0-98.0); Mean Platelet Volume 10.2 fL (9.4-12.4); Monocytes Absolute Auto 0.5 X10*3/uL (0.1-1.2); Monocytes Percent Auto 8.5 % (2-11); Neutrophils Absolute Auto 3.3 x10*3/uL (2.0-8.3); Neutrophils Percent Auto 58.8 % (45-73); Platelet Count 204 X10*3/uL (160-400); Red Blood Count 5.28 X10*6/uL (4.60-5.80); Red Cell Distribution Width 12.9 % (11.0-16.0); White Blood Count 5.5 X10*3/uL (4.8-10.8)
[2024-05-14 16:27] LABS: Alanine Aminotransferase 46 U/L (0-40); Aspartate Amino Transferase 38 U/L (5-37); Estimated Glomerular Filt Rate > 60
== END 2024-05-14 13:52 | disposition home or self-care (01) ==
LOC: HO.LAB 13:51
PROVIDERS: PCP Family Medicine; Visit Provider Internal Medicine Rheumatology
DX: M10.9 Gout, unspecified (principal)
CPT/HCPCS: 36415; 82565; 84450; 84460; 84550; 85025

== ENCOUNTER 2024-08-10 09:09 | Outpatient (REF) | payer OTHER, SELFPAY ==
--- NOTE | ~2024-08-10 | XR_ITS ---
EXAMINATION: XR SHOULDER 2 OR MORE VIEWS LEFT HISTORY: M25.512 - Pain in left shoulder COMPARISON: There are no prior studies available for comparison. FINDINGS: Three views of the left shoulder are submitted. Osseous mineralization is normal. There is no fracture or dislocation. The glenohumeral joint is maintained. There is mild narrowing of the AC joint. The soft tissues are unremarkable. XR/XR shoulder LT min 2V IMPRESSION: Mild narrowing of the AC joint. Electronically signed by: Hitesh Craig MD 08/10/2024 03:19 PM DHAVAL SMITH
--- OUTSIDE RECORDS SUMMARY | 2024-08-10 09:35 | XMS_ITS | Continuity of Care Document ---
Author Organization [facility] Marty lt Address [address] [place] [address]- Care Team Providers Care Complaint Adjuster Name Role Phone Levi PETERSON, Titus Corrigan Primary Care Physician [place] [facility] [place]/24 [facility] Adult [address] [place] [address]- Encounter Type: Triage Allergies, Adverse Reactions, Alerts No Known Allergies Immunizations Given and Recorded Vaccine Date Status Refusal Reason influenza virus vaccine, inactivated 04/27/23 Robert rded influenza virus vaccine, inactivated 04/27/22 Robert rded influenza virus vaccine, inactivated 05/05/21 Robert rded influenza virus vaccine, inactivated 04/03/21 Robert rded influenza virus vaccine, inactivated 04/08/20 Robert rded influenza virus vaccine, inactivated 04/18/19 Robert rded influenza virus vaccine, inactivated 06/06/18 Robert rded influenza virus vaccine, inactivated 05/06/17 Robert rded influenza virus vaccine, inactivated 04/10/17 Robert rded influenza virus vaccine, inactivated 1 05/31/16 Re corded influenza virus vaccine, inactivated 05/05/16 Robert rded influenza virus vaccine, inactivated 2 04/26/14 Gi melody influenza virus vaccine, inactivated 3 07/18/13 Gi melody SARS-CoV-2 (COVID-19) mRNA BNT-162b2 vac 04/10/21 Recorded SARS-CoV-2 (COVID-19) mRNA BNT-162b2 vac 07/24/20 Recorded SARS-CoV-2 (COVID-19) mRNA BNT-162b2 vac 07/01/20 Recorded tetanus/diphtheria/pertussis, acel(Tdap) 11/06/20 Recorded Influenza Virus Vaccine (oldterm) 04/24/20 Recorde d hepatitis B adult vaccine 4 10/24/14 Given Measles/Mumps/Rubella Virus Vaccine 5 10/24/14 Giv en FluLaval (oldterm) 06/21/12 Given FluLaval (oldterm) 6 03/21/09 Given Tet/diphth/pertussis, acel (oldterm) 7 03/16/11 Gi melody 1Result Comment: [06/14/2016] at [facility] 2Admin Note: [facility] 3Admin Note: [employer] 4Admin Note: [employer] 5Admin Note: [employer] 6Admin Note: [facility] [place] 7Admin Note: [facility] 2006 Medications allopurinol 100 mg oral tablet 300 mg, 3, tablet, By Mouth, Daily, # 60 tablet, Refills 0, Maintenance, 11/08/16 8:51:46 AM EDT Start Date: 11/08/16 Status: Ordered Quantity: 60.0 Unit: tablet Repeat number: 1 colchicine 0.6 mg oral capsule See Instructions, 2 tablets at onset of gout pain then 1 tablet 1 hour later, 0 Refills, Maintenance, 11/08/16 8:51:21 AM EDT Start Date: 11/08/16 Status: Ordered Repeat number: 1 sildenafil 100 mg oral tablet 1 tablet = 100 mg, By Mouth, Daily, 1 hour before sexual activity, # 10 tablet, 5 Refills, Maintenance, 06/23/23 6:20:00 AM EST, Tablet, [facility]/pharmacy #[id number], Partial fill upon patient request if the prescription is for a schedule II opioid drug., 182.5, cm, 06/08/23 16:01:00 EST, Height Start Date: 06/23/23 Status: Ordered Quantity: 10.0 Unit: tablet Repeat number: 6 Vitamin C 0 Refills, Maintenance, 03/21/12 9:19:14 AM EDT Start Date: 03/21/12 Status: Ordered Repeat number: 1 Vitamin D3 By Mouth, 0 Refills, Maintenance, 03/21/12 9:19:07 AM EDT Start Date: 03/21/12 Status: Ordered Repeat number: 1 Problem List Condition Confirmation Course Effective Dates Status H ealth Status Informant Erectile dysfunction Confirmed Active Family history of colon cancer 1 Confirmed Active Family history of melanoma 2 Confirmed Active Chronic gout Confirmed Active Hyperlipidemia - ASCVD risk 4.0% as of 05/26/2020 Confirmed Active Sesamoiditis - left foot , chronic Confirmed Active 1father 2father Social History Social History Type Response Smoking Status Never smoker entered on: 01/03/18 Sex Sex Representation Male (finding) Patient Care team information Care Team Personnel Name: Levi PETERSON, Titus Corrigan Position: [facility] Physician - Primary Care Member Role: PCP Address: [address] [place] [address]- Telecom: Care Team Related Persons Name: MENDY PHAM Insurance Providers Guarantor name: FREEMAN PHAM Health Plan Information #: 1 Payer: [employer]UE [employer]EFIT B[employer] PPO Member Number: NA Policy Number: NA Group Number: NA
--- OUTSIDE RECORDS SUMMARY | 2024-08-10 09:35 | XMS_ITS | Continuity of Care Document ---
Author Organization [facility] Marty lt Address [address] [place] [address]- Care Team Providers Care Avionics Repair Technician Name Role Phone Levi PETERSON, Titus Corrigan Primary Care Physician [phone] Encounter [facility] [place] Date(s): 06/12/24 - 07/12/24 [facility] Adult [address] [place] [address]- Encounter Type: Triage Allergies, Adverse Reactions, Alerts [...] 1Result Comment: [06/14/2016] at [facility] at [facility] 2Admin Note: [facility] 3Admin Note: [employer] 4Admin Note: WORK [employer]CTION 5Admin Note: [employer] 6Admin Note: [employer] [facility] [place] 7Admin Note: [facility] 2006 Medications allopurinol 100 mg oral tablet [...] Refills, Maintenance, 06/23/23 6:20:00 AM EST, Tablet, [facility]/pharmacy #[id number], Partial fill upon patient request if the [...] Personnel Name: Levi PETERSON, Titus Corrigan Position: [facility] Physician - Primary Care Member Role: PCP Address: [address] [place] [address]- Telecom: Care Team Related Persons Name: MENDY PHAM Insurance Providers Guarantor name: FREEMAN PHAM Health Plan Information #: 1 Payer: [employer] PPO Member Number: NA Policy Number: NA Group Number: NA
== END 2024-08-10 09:10 | disposition home or self-care (01) ==
LOC: HO.HOSX 09:09
PROVIDERS: Visit Provider Physician Assistant
DX: M25.512 Pain in left shoulder (principal); M75.22 Bicipital tendinitis, left shoulder
CPT/HCPCS: 73030

== ENCOUNTER → 2024-08-10 13:29 | Outpatient (BNV) | payer OTHER, SELFPAY | PROVIDERS: Visit Provider Radiology Diagnostic Radiology | DX: M25.512 Pain in left shoulder (principal) | CPT/HCPCS: 73030 ==

== ENCOUNTER 2024-09-06 08:11 | Outpatient (AMB) | payer OTHER, SELFPAY ==
--- NOTE | 2024-09-06 08:16 | A.OFFVIS_ITS ---
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 Based on coronary CTA, he has got nonobstructive CAD. He used to get chest pains related to GERD extra and he still gets some. However, nothing exertional in fact he has never had exertional chest pain. A prior stress test was reported have ST depression and that led to consultation. Following that, he underwent an exercise stress echocardiogram and a coronary CTA. Overall, he feels very good. No cardiac symptoms whatsoever. [facility] Medical History (Updated 08/10/24 @ 13:59 by Darrius Gordon PA-C) Atherosclerotic cardiovascular disease Surgical History No pertinent past surgical history Family History Father Atrial fibrillation Mother Parkinson disease Social History Alcohol intake: current Alcohol intake frequency: a few times a week Patient Tobacco Use Status: Never used Tobacco Review of Systems Const Denies chills, Denies fatigue, Denies fever(s), Denies weight gain and Denies weight loss ENT Denies dizziness Card Denies chest pain, Denies leg edema, Denies lightheadedness, Denies palpitations, Denies dyspnea on exertion, Denies orthopnea and Denies other Resp Denies cough and Denies dyspnea on exertion GI Denies hematochezia and Denies change in stool character Musc Denies abnormal gait, Denies muscle weakness, Denies numbness, Denies radiating pain into limb and Denies tingling Neuro Denies abnormal gait, Denies dizziness, Denies numbness and Denies tingling Endo Denies fatigue and Denies palpitations Physical Exam Vital Signs: Last Vital Signs Pulse 70 09/06/24 08:17 BP 120/54 L 09/06/24 08:17 BMI result Body Mass Index 30.1 Const General: comfortable and no acute distress Orientation/consciousness: patient oriented x3 HEENT Other: Unremarkable Head: Yes normal to inspection Neck Neck: Yes normal visual inspection Chest Chest palpation & inspection: normal inspection of the chest Resp Auscultation: clear to auscultation bilaterally Cardio Palpation: normal PMI Heart sounds: S1 normal heart sound present, S2 normal heart sound present, no gallops, no murmurs and no rubs GI Palpation (GI): Soft to palpation Back/Spine/Pelvis Other: unremarkable Skin General skin exam: no rashes or lesions noted Neuro General: patient oriented x3 Extrem General: Yes normal to inspection Psych Mental Status: mental status grossly normal Office Procedures EKG Details: EKG with underlying sinus rhythm at 70/Min; nonspecific ST-T changes; [place]. [address]-[id number], Complete Assessment & Plan Assessment & Plan (1) Atherosclerotic cardiovascular disease: Code(s): I25.10 - Atherosclerotic heart disease of [place] coronary artery without angina pectoris Category: Medical (2) Ascending aorta dilatation: Code(s): I77.810 - Thoracic aortic ectasia Category: Medical Plan Cardiac studies reviewed. In the transthoracic echocardiogram, LVEF of 60-65%. Mild left ventricle hypertrophy. Normal peak global longitudinal strain. There is description of inferior wall motion abnormality but upon my review I think it is within normal limits. In the exercise stress echocardiogram, he did almost 15 METS on Tor protocol. He did not have any angina. There were ST-T changes in the EKG with depression but the echocardiographic component did not show any suggestion of stress- induced wall motion abnormality. Diastolic parameters showed appropriate changes with exercise. At rest, there was borderline pulmonary artery pressure and there was slight increase with exercise but not worrisome. In the coronary CTA, 40% LAD stenosis related to a non calcific plaque-after D2 takeoff. Proximal RCA with less than 20% stenosis. Similar finding in mid/distal RCA junction. FFR was unremarkable overall. Overall, he has got absolutely no cardiac symptoms. Mainly risk factor modification. If able, some weight loss. Continue statins and his LDL is very well controlled. This is a slight abnormality in LFTs and we can recheck that. Not clear if it is statin related or not. Otherwise, ascending aortic size on the echocardiogram was 4 cm. In the CTA, 3.9/3.8 cm. Overall, borderline and reasonable for his height and weight. We can check that in the future. We also talked about a repeat CTA to monitor for any progression of CAD. Consider that possibly next year or the year after. To be decided. We will plan on seeing him in 1 year. In the interim, he will contact us with any concerns. Orders: Orders Liver Panel Today I25.10 - Atherosclerotic heart disease of [place] coronary artery without angina pectoris Lipid Panel Today E78.5 - Hyperlipidemia, unspecified, I25.10 - Atherosclerotic heart disease of [place] coronary artery without angina pectoris Coding Level of Care Code Est Pt Level 4 (28026) Complex EM visit Add On G2211 Diagnoses Atherosclerotic cardiovascular disease I25.10 Ascending aorta dilatation I77.810 CPT Codes EKG - CPT: 54003-[id number], Complete ([id number])
[2024-09-06 08:17] VITALS: BP 120/54; PULSE 70; BMI 30.1
--- OUTSIDE RECORDS SUMMARY | 2024-09-06 08:29 | XMS_ITS | Patient Health Record ---
Author Organization [facility] Address [address] [place] [address] Care Team Providers Care Business Analyst Intern Name Role Phone Titus Sims Primary Care Provider Christian Hamilton Jr Unavailable [phone] REASON FOR REFERRAL No Information MEDICATIONS Medication SIG (Take, Route, Frequency, Duration) Notes Start Date End Date Status Vitamin C 500 MG as directed Orally a s needed Active Vitamin D 25 MCG (1000 UT) 1 tablet Oral ly Once a day/ as needed Active Allopurinol 300 MG 1 tablet Orally Once a day Active MiraLax (colon prep) 8.3 ounce ((238) grams mixed with Gatorade or Crystal Light orally begin at 5:00 p.m. the day before the procedure for 1 day 06/20/2019 Active IMMUNIZATIONS Vaccine Route Administration Date Status Comme nts Influenza Unknown 04/10/2019 Administered SOCIAL HISTORY Tobacco Use: Social History Observation Description Date Details (start date - stop date) Never Smoker NA - NA Sex Assigned At : Social History Observation Description Sex Assigned At Unknown Tobacco Use/Smoking Question Answer Notes Patient is a nonsmoker Alcohol Screen Question Answer Notes Did you have a drink contain ing alcohol in the past year? Yes How often did you have a dri nk containing alcohol in the past year? 2 to 3 times a week (3 points) How many drinks did you have on a typical day when you were drinking in the past year? 3 or 4 drinks (1 point) How often did you have 6 or more drinks on one occasion in the past year? Never (0 point) Points 4 Interpretation Positive PROBLEMS Problem Type ICD Code Onset Dates Problem Status W/U Status Risk SNOMED Code Notes Problem Colon cancer screening (Z12.11) Active confirmed 918902982 Problem Gastroesophageal reflux disease without esophagitis (K21.9) Active confirmed 511328637 Problem Family history of colon cancer (Z80.0) Active confirmed 617417830 PLAN OF TREATMENT Future Test Test Name Order Date UPPER GI ENDOSCOPY 06/20/2019 COLONOSCOPY 06/20/2019 Next Appt Details Provider Name:Christianharjit rangel , 11/15/2024 02:15:00 PM, [address] [place] [address], [address], [place], [address], Insurance Providers Payer Name Payer Address Payer Phone Subscriber Number Group Number Insured Name Patient Relationship to Insured Coverage Start Date Coverage End Date [employer] [place] [address] [address] [place] [address] [id number] 1 FREEMAN CIFUENTES Self - patient is the insured MEDICAL (GENERAL) HISTORY Medical History History ICD Code Denies [place],DM,CVA,Lung disease,renal dise ase anxiety Gout Surgical History Surgery Date(Month/Year) cataract removal dental/implants/wisdom mouth as child
== END 2024-09-06 08:40 | disposition home or self-care (01) ==
PROVIDERS: Visit Provider Internal Medicine
DX: I25.10 Atherosclerotic heart disease of native coronary artery without angina pectoris (principal); I77.810 Thoracic aortic ectasia
CPT/HCPCS: 93010; 99214

== ENCOUNTER → 2024-09-06 08:11 | Outpatient (BNVA) | payer OTHER, SELFPAY | PROVIDERS: Visit Provider Internal Medicine | DX: I25.10 Atherosclerotic heart disease of native coronary artery without angina pectoris (principal); I77.810 Thoracic aortic ectasia | CPT/HCPCS: 93005 ==

== ENCOUNTER 2024-09-13 08:57 | Outpatient (AMB) | payer OTHER, SELFPAY ==
[2024-09-13 08:57] VITALS: BP 120/62; PULSE 75; TEMP 37.1; O2SAT 98; BMI 30.1
--- NOTE | 2024-09-13 08:57 | AM.OFFWIN_ITS ---
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 Reports Cough, Sore-throat, Headaches, subjective fevers, body chills, body aches and Fatigue. [facility] Medical History (Updated 09/13/24 @ 09:19 by Priya Farah NP) Acute pharyngitis Acute respiratory disease Atherosclerotic cardiovascular disease Surgical History No pertinent past surgical history Family History Father Atrial fibrillation Mother Parkinson disease Social History Alcohol intake: current Alcohol intake frequency: a few times a week Patient Tobacco Use Status: Never used Tobacco Review of Systems Const All systems reviewed & are unremarkable except as noted in HPI and below Physical Exam Vital Signs: Last Vital Signs Temp 98.7 F 09/13/24 08:57 Pulse 75 09/13/24 08:57 BP 120/62 09/13/24 08:57 Pulse Ox 98 09/13/24 08:57 BMI result Body Mass Index 30.1 Const General: cooperative and no acute distress Nutritional Appearance: well nourished Orientation/consciousness: patient oriented x3 HEENT Head: Yes normocephalic Ears: external ears normal and TM abnormal with fluid behind the TM bilateral General nose exam: Nasal discharge present Face and sinus: Yes sinuses nontender Mouth: Abnormal oral and palatal mucosa present erythematous Throat: Yes uvula midline and Yes abnormal tonsil (Enlarged tonsils +2) Resp Effort & Inspection: normal respiratory effort and able to speak in complete sentences Auscultation: clear to auscultation bilaterally Cardio Heart sounds: S1 normal heart sound present and S2 normal heart sound present Neuro General: patient oriented x3 Results AMB Rapid Strep AMB Rapid Strep Negative Last Edit by Priya Farah NP on 09/13/24 09:21 Assessment & Plan Assessment & Plan (1) Acute respiratory disease: Code(s): J06.9 - Acute upper respiratory infection, unspecified Plan: Rapid Strep Negative today. Ordered SARs OTC cold/Flu remedies Rest and Hydrate well with warm fluids. Orders: Orders SARS-CoV2/FLU/RSV Today J06.9 - Acute upper respiratory infection, unspecified AMB Rapid Strep Screen Today J02.9 - Acute pharyngitis, unspecified, J06.9 - Acute upper respiratory infection, unspecified, Z13.9 - Encounter for screening, unspecified Medications: New benzonatate 200 mg (2 x 100 mg) PO TID 90 caps 0RF J02.9 - Acute pharyngitis, unspecified, J06.9 - Acute upper respiratory infection, unspecified Coding Level of Care Code Est Pt Level 4 (82048) Diagnoses Acute respiratory disease J06.9 Time Spent (min) 20
--- OUTSIDE RECORDS SUMMARY | 2024-09-13 09:49 | XMS_ITS | Patient Health Record ---
Author Organization [facility] Address [address] [place] [address] Care Team Providers Care Merchant Banker Name Role Phone Titus Sims Primary Care Provider Christian Hamilton Jr Unavailable Reason For Referral No Information Medications Medication SIG (Take, Route, Frequency, Duration) Notes [...] the procedure for 1 day 06/20/2019 Active Immunizations Vaccine Route Administration Date Status Comme nts Influenza Unknown 04/10/2019 Administered Social History Tobacco Use: Social History Observation Description Date Details (start date - stop date) Never Smoker NA - NA Tobacco Use/Smoking Question Answer Notes Patient is [...] Never (0 point) Points 4 Interpretation Positive Problems Problem Type SNOMED Code ICD Code Onset Dates Problem Status W/U Status Risk Notes Problem 538492586 Colon cancer screening (Z12.11) Active confirmed Problem 414914238 Gastroesophageal reflux disease without esophagitis (K21.9) Active confirmed Problem 251853604 Family history o f colon cancer (Z80.0) Active confirmed Plan Of Treatment Future Test Test Name Order Date UPPER GI ENDOSCOPY 06/20/2019 COLONOSCOPY 06/20/2019 Next Appt Details Provider Name:Christian Berna rangel Jr, 11/15/2024 02:15:00 PM, [address] [facility], [address], [place], [address], Insurance Providers Payer Name Payer Address Payer Phone Subscriber Number Group Number Insured Name Patient Relationship to Insured Coverage Start Date Coverage End Date [employer] [place] [address] [address] [place] [address] [id number] FREEMAN CIFUENTES Self - patient is the insured Medical (General) History Medical History History ICD Code Denies [place],DM,CVA,Lung disease,renal dise ase anxiety Gout Surgical History Surgery Date(Month/Year) cataract removal dental/implants/wisdom mouth as child
== END 2024-09-13 09:19 | disposition home or self-care (01) ==
PROVIDERS: PCP Family Medicine; Visit Provider Nurse Practitioner Family
DX: Z13.9 Encounter for screening, unspecified (principal); J06.9 Acute upper respiratory infection, unspecified; J02.9 Acute pharyngitis, unspecified

== ENCOUNTER 2024-09-13 08:57 | Outpatient (REF) | payer OTHER, SELFPAY ==
[2024-09-13 12:52] LABS: Influenza A PCR POSITIVE (Negative); Influenza B PCR NEGATIVE (Negative); Resp Syncy Virus RNA Qual PCR NEGATIVE (Negative); SARS COV2 PCR INHOUSE NEGATIVE (Negative)
== END 2024-09-13 08:58 | disposition home or self-care (01) ==
LOC: HO.LAB 08:57
PROVIDERS: PCP Family Medicine; Visit Provider Nurse Practitioner Family
DX: J06.9 Acute upper respiratory infection, unspecified (principal)
CPT/HCPCS: 0241U; 87880

== ENCOUNTER 2024-09-20 08:30 | Outpatient (REF) | payer OTHER, SELFPAY ==
--- OUTSIDE RECORDS SUMMARY | 2024-09-20 09:04 | XMS_ITS | Patient Health Record ---
Author Organization [facility] Address [address] [place] [address] Care Team Providers Care Mattress Finisher Name Role Phone Titus Sims Primary Care Provider Christian Hamilton Jr Unavailable [phone] Reason For Referral No Information Medications Medication [...] Problem Status W/U Status Risk Notes Problem 528037416 Colon cancer screening (Z12.11) Active confirmed Problem 769186274 Gastroesophageal reflux disease without esophagitis (K21.9) Active confirmed Problem 854167654 Family history o f colon cancer (Z80.0) Active confirmed Plan Of Treatment Future Test Test Name Order Date UPPER GI ENDOSCOPY 06/20/2019 COLONOSCOPY 06/20/2019 Next Appt Details Provider Name:Christian Berna rangel Jr, 11/15/2024 02:15:00 PM, [address] [facility], [address], [place], [address], Insurance Providers Payer Name Payer Address Payer Phone Subscriber Number Group Number Insured Name Patient Relationship to Insured Coverage Start Date Coverage End Date [employer] [place] [address] [address] [place] [address] [id number] FREEMAN CIFUENTES Self - patient is the insured Medical (General) History Medical History History ICD Code Denies [place],DM,CVA,Lung disease,renal dise ase anxiety Gout Surgical History Surgery Date(Month/Year) cataract removal dental/implants/wisdom mouth as child
[2024-09-20 10:12] LABS: Alanine Aminotransferase 60 U/L (0-40); Albumin Level 4.1 g/dL (3.5-5.0); Alkaline Phosphatase 85 U/L (39-117); Aspartate Amino Transferase 42 U/L (5-37); Bilirubin Direct 0.3 mg/dL (0.0-0.5); Bilirubin Total 0.7 mg/dL (0.0-1.0); Cholesterol 115 mg/dL (<200); HDL Cholesterol 32 mg/dL (>40); LDL Cholesterol Calculated 59 mg/dL (<100); Total Protein 7.2 g/dL (6.5-8.0); Triglycerides 121 mg/dL (<150)
== END 2024-09-20 08:31 | disposition home or self-care (01) ==
LOC: HO.LAB 08:30
PROVIDERS: PCP Family Medicine; Visit Provider Internal Medicine
DX: I25.10 Atherosclerotic heart disease of native coronary artery without angina pectoris (principal); E78.5 Hyperlipidemia, unspecified
CPT/HCPCS: 36415; 80061; 80076

== ENCOUNTER 2024-10-19 07:59 | Outpatient (RCR) | payer OTHER, SELFPAY ==
--- NOTE | 2024-08-22 09:55 | MHC.PT.EP ---
[facility] [place] Office [place] Office [place] Office [address] George Licea [address] [phone] F: [phone] F: [phone] F: [phone] F: [phone] Physical Therapy Plan of Care Date of Evaluation: 08/22/24 Date of Surgery: NA Diagnosis: Bicipital tendinitis, L shoulder Assessment: Javier is a 54 year old male who is referred to PT for Bicipital tendinitis, L shoulder . He reports of having h/o intermittent shoulder pain for several years which was managed with rest however about a few months back his pain has become constant and needs to take pain meds or take rest from the activities for a few weeks to resolve symptoms. On PT examination he presented with no TTP (most likely due to being Ibuprofen for several days), 3-5/10 pain at rest and with overhead shoulder movements, lifting weights and gym exercises, pain with end range shoulder movements, decreased L shoulder and scap strength and altered posture. He is independent with all ADLS but has pain with over head activities. He is limited in his ability to exercise in the gym. He would benefit from skilled PT to address the aforementioned impairments and improve tolerance to functional activities. Frequency and Duration: The patient will be seen 2/week for 4 weeks Short Term Goals: 1. Pt will deny having any pain rest in 2 weeks 2. Pt will be able to move trunk through full plane of motion without pain which will enable him to dress his upper body without pain in 3 weeks. Jailer/Training Officer Goals: 1. Pt will demonstrate awareness of good posture and form with all exercises and not have any pain with chest press, chest fly and push ups in 5 weeks 2. Pt will demonstrate an increase in muscle strength by 1 grade which will enable him to perform all ADLS including lifting without pain in 5 weeks 3. Pt will be independent with all HEP and return to PLOF in 5 weeks. Treatment Plan: Modalities to reduce pain, spasms and effusion. Manual therapy to restore motion and function. Therapeutic exercise to improve strength and flexibility. Neuromuscular re-education for posture and balance. Therapeutic activities to return to functional activities of daily living. Electronically signed by: Nadia Dueñas PT DPT Please sign and return to therapist. Thank you for your referral.
--- NOTE | 2024-11-13 08:42 | MHC.PT.DC ---
[facility] [place] Office [place] [facility] [place] Office [address] [phone] F: [phone] F: [phone] F: [phone] F: [phone] Physical Therapy Discharge Report Diagnosis: Bicipital tendinitis, L shoulder Date of Surgery: NA Date of Evaluation: 08/22/24 Date of Discharge: 11/13/24 Treatments to Date: 13 Cancellations to Date: 0 No Shows to Date: 0 Discharge Status: Achieved Goals Improved Function Independent with HEP Discharge Summary: Javier completed 13 PT visits and has made significant improvements with PT. He has achieved all goals set for him. He is therefore being d/c from PT. Electronically signed by: Nadia Dueñas, PT DPT Please sign and return to therapist. Thank you for your referral.
== END 2024-11-13 08:42 | disposition home or self-care (01) ==
LOC: HO.PT 07:59
PROVIDERS: PCP Family Medicine; Visit Provider Physician Assistant
DX: M75.22 Bicipital tendinitis, left shoulder (principal)
CPT/HCPCS: 97035; 97110; 97140; 97161; 97530

== ENCOUNTER 2024-12-21 07:00 | Day surgery (SDC) | payer OTHER, SELFPAY ==
--- OUTSIDE RECORDS SUMMARY | 2024-11-16 07:00 | XMS_ITS ---
Author Organization [facility] Address [address] [place] [address] Care Team Providers Care Healthcare Recruiter Name Role Phone Titus Sims Primary Care Provider Christian Hamilton Jr Unavailable Allergies No Known Allergies REASON FOR VISIT Patient presents today for a screening colonoscopy Medications Medication SIG (Take, Route, Frequency, Duration) Notes Start Date End Date Status Sildenafil Citrate 100 MG TAKE 1 TABLET BY MOUTH EVERY DAY 1 HOUR PRIOR TO SEXUAL ACTIVITY Oral for 30 Days Active Vitamin C 500 MG as directed Orally a s needed Active Rosuvastatin Calcium 20 MG TAKE 1 TABLET BY MOUTH EVERY DAY Oral for 90 Days Active Vitamin D 25 MCG (1000 UT) 1 tablet Oral ly Once a day/ as needed Active Allopurinol 300 MG 1 tablet Orally Once a day Active Social History Tobacco Use: Social History Observation [...] Never (0 point) Points 4 Interpretation Positive Vital Signs Blood pressure systolic 111 mm Hg 11/16/19 25 Blood pressure diastolic 77 mm Hg 025 Height 72 in 11/15/2024 Weight 219 lbs 11/15/2024 BMI 29.7 kg/m2 11/15/2024 Encounters Encounter Location Date Provider Diagnosis [facility] [address] [place] [address] 11/15/2024 Christianharjit Rogers Jr Gastroesophageal reflux disease without esophagitis K21.9 ; Colon cancer screening Z12.11 ; Family history of colon cancer Z80.0 and Elevated LFTs R79.89 Assessments Encounter Date Diagnosis (ICD Code) Assessment Notes Treatment Notes Treatment Clinical Notes Section Notes 11/15/2024 Gastroesophageal reflux disease without esophagitis (ICD-10 - K21.9) We discussed gastroesophageal reflux disease today. We discussed diet, lifestyle modifications, and weight management. He will continue his present treatment. He is due for colorectal cancer screening. This will be arranged. He is aware of risks and benefits and agrees to proceed. His liver function test elevations seem related to his statin use and we discussed this in detail today. We did recommend further evaluation with ultrasound imaging and this will be scheduled. 11/15/2024 Colon cancer screening (ICD-10 - Z12.11) We discussed gastroesophageal reflux disease today. We discussed diet, lifestyle modifications, and weight management. He will continue his present treatment. He is due for colorectal cancer screening. This will be arranged. He is aware of risks and benefits and agrees to proceed. His liver function test elevations seem related to his statin use and we discussed this in detail today. We did recommend further evaluation with ultrasound imaging and this will be scheduled. 11/15/2024 Family history of colon cancer (ICD-10 - Z80.0) We discussed gastroesophageal reflux disease today. We discussed diet, lifestyle modifications, and weight management. He will continue his present treatment. He is due for colorectal cancer screening. This will be arranged. He is aware of risks and benefits and agrees to proceed. His liver function test elevations seem related to his statin use and we discussed this in detail today. We did recommend further evaluation with ultrasound imaging and this will be scheduled. 11/15/2024 Elevated LFTs (ICD-10 - R79.89) We discussed gastroesophageal reflux disease today. We discussed diet, lifestyle modifications, and weight management. He will continue his present treatment. He is due for colorectal cancer screening. This will be arranged. He is aware of risks and benefits and agrees to proceed. His liver function test elevations seem related to his statin use and we discussed this in detail today. We did recommend further evaluation with ultrasound imaging and this will be scheduled. Plan Of Treatment Pending Test Test Name Order Date US ABD 11/15/2024 Future Test Test Name Order Date COLONOSCOPY 11/15/2024 Next Appt Details Provider Name:Christian Cummins claire Chadwick, 12/21/2024 09:20:00 AM, [address] [place] [address] , [place], [place], [id number], Progress Notes * FREEMAN PHAMDOB: [birth year] (54 yo M)Acc No.[id number]:11/15/2024 Progress Notes Patient:?FREEMAN PHAM Provider:?Christian Rogers MD :1970???Age:54 Y???Sex:Male Ermias e:11/15/2024 Address:[address] [place] [address] [address] [place], [facility] Pcp:Titus Sims Subjective: * Chief Complaints: * ???1. Patient presents today for a screening colonoscopy. * Medical History:?Denies DE,D M,CVA,Lung disease,renal disease, Anxiety, Gout. * Surgical History:?cataract r emoval , dental/implants/wisdom , mouth as child . * Family History:?Father: dece ased, partial colon removed, diagnosed with Colon polyps, Colon cancer.?Mother: , Parkinsons/stroke.? * Social History:?Tobacco Use:?Tobacco Use/Smoking?Patient is a?nonsmoker.?Drugs/Alcohol:?Alcohol Screen?Did you have a drink containing alcohol in the past year??Yes,?How often did you have a drink containing alcohol in the past year??2 to 3 times a week (3 points),?How many drinks did you have on a typical day when you were drinking in the past year??3 or 4 drinks (1 point),?How often did you have 6 or more drinks on one occasion in the past year??Never (0 point),?Points?4,?Interpretation?Positive.?Miscellaneous:?Marital status: . 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 * Medications:?Taking Allopuri nol 300 MG Tablet 1 tablet Orally Once a day , Taking Vitamin D 25 MCG (1000 UT) Tablet 1 tablet Orally Once a day/ as needed , Taking Vitamin C 500 MG Capsule as directed Orally as needed , Taking Rosuvastatin Calcium 20 MG Tablet TAKE 1 TABLET BY MOUTH EVERY DAY Oral , Taking Sildenafil Citrate 100 MG Tablet TAKE 1 TABLET BY MOUTH EVERY DAY 1 HOUR PRIOR TO SEXUAL ACTIVITY Oral , Discontinued MiraLax (colon prep) 8.3 ounce ((238) grams mixed with Gatorade or Crystal Light orally begin at 5:00 p.m. the day before the procedure , Medication List reviewed and reconciled with the patient * Allergies:?N.K.D.A. Objective: * Vitals:?Wt:219lbs, Ht: 72 in , BMI:29.7Index, BP:111/77mm Hg, Wt-k.34. Assessment: * Assessment: 1.?Gastroesophageal reflux d isease without esophagitis - K21.9 (Primary)???2.?Colon cancer screening - Z12.11???3.?Family history of colon cancer - Z80.0???4.?Elevated LFTs - R79.89??? We discussed gastroesophagea l reflux disease today. We discussed diet, lifestyle modifications, and weight management. He will continue his present treatment. He is due for colorectal cancer screening. This will be arranged. He is aware of risks and benefits and agrees to proceed. His liver function test elevations seem related to his statin use and we discussed this in detail today. We did recommend further evaluation with ultrasound imaging and this will be scheduled. Plan: * Treatment: 2.?Family history of colon cancer?Procedure: COLONOSCOPY (Ordered for 11/15/2024)* sched for 12/21/24 at 9:20 am macmiralax 3.?Elevated LFTs?Imaging: US ABD* sched for 12/27/24 at 9:00 am [facility] ultrasound dept 2nd floorfasting 8 hrs prior * * Preventive Medicine:? ??Counseling:?Care goal follow-up plan:?Above Normal BMI Follow-up?Giving encouragement to exercise,?BMI management provided?Yes.? * * The named appointment provid er may or may not be the originator of this progress note, and it is not deemed complete until electronically signed by the appointment provider. Sign off status: Pending * Provider:?Christian Rogers MD Date:?0 11/15/2024 Generated for Zafar ruffin/Amalia/Marija on:?11/16/2024 07:00 AM EDT
--- OUTSIDE RECORDS SUMMARY | 2024-11-16 07:00 | XMS_ITS | Patient Health Record ---
Author Organization [facility] Address [address] [place] [address] Care Team Providers Care Piece Goods Clerk Name Role Phone Titus Sims Primary Care Provider Christian Hamilton Jr Unavailable [phone] Allergies No Known Allergies Reason For Referral No Information Medications Medication [...] EVERY DAY Oral for 90 Days Active Allopurinol 300 MG 1 tablet Orally Once a day Active Vitamin D 25 MCG (1000 UT) 1 tablet Oral ly Once a day/ as needed Active Immunizations Vaccine Route Administration Date Status [...] Problem Status W/U Status Risk Notes Problem 522806759 Colon cancer screening (Z12.11) Active confirmed Problem 688264585 Gastroesophageal reflux disease without esophagitis (K21.9) Active confirmed Problem 572795050 Family history o f colon cancer (Z80.0) Active confirmed Vital Signs Blood pressure diastolic 77 mm Hg 11/15/2024 Height 72 in 11/15/2024 Blood pressure systolic 111 mm Hg 11/15/2024 Weight 219 lbs 11/15/2024 BMI 29.7 kg/m2 11/15/2024 Encounters Encounter Location Date Provider Diagnosis [facility] [address] [place] [address] 11/15/2024 Christian Rogers Jr Gastroesophageal reflux disease without esophagitis K21.9 ; Colon cancer screening Z12.11 ; Family history of colon cancer Z80.0 and Elevated LFTs R79.89 Assessments Encounter Date Diagnosis (ICD Code) Assessment Notes Treatment Notes Treatment Clinical Notes Section Notes 11/15/2024 Colon cancer screening (ICD-10 - Z12.11) [...] imaging and this will be scheduled. 11/15/2024 Gastroesophageal reflux disease without esophagitis (ICD-10 [...] 11/15/2024 Future Test Test Name Order Date UPPER GI ENDOSCOPY 06/20/2019 COLONOSCOPY 06/20/2019 COLONOSCOPY 11/15/2024 Next Appt Details Provider Name:Christian rangel Jr, 12/21/2024 09:20:00 AM, [address] [place] [address] , [place], [place], [phone], Insurance Providers Payer Name Payer Address Payer Phone Subscriber Number Group Number Insured Name Patient Relationship to Insured Coverage Start Date Coverage End Date [employer] [place] [address] [address] [place] [address] [id number] FREEMAN CIFUENTES Self - patient is the insured Medical (General) History Medical History History ICD Code Denies [place],DM,CVA,Lung disease,renal dise ase anxiety Gout Surgical History Surgery Date(Month/Year) mouth as child dental/implants/wisdom cataract removal
[2024-12-19 13:34] VITALS: BMI 29.7
--- NOTE | 2024-12-20 09:40 | HO.ANESPROP2 ---
HPI - Anesthesia Eval Consult details Narrative: 54yo M for Colonoscopy Follows [facility] for nonobstructive CAD. Stable at last office visit 08/2024 for 1 year routine f/u [facility] Active Problems Active Problems: All Active Problems Abnormal LFTs (Acute) Bicipital tendinitis, left shoulder (Acute) Snoring (Acute) Ascending aorta dilatation (Acute) Abnormal stress test (Acute) Precordial chest pain (Acute) Influenza A (Acute) Acute pharyngitis (Acute) Acute respiratory disease (Acute) Atherosclerotic cardiovascular disease (Acute) Past Medical History Medical History GERD (gastroesophageal reflux disease) Gout Anxiety CAD (coronary artery disease) Influenza A Acute pharyngitis Acute respiratory disease Atherosclerotic cardiovascular disease Family History Family History Father Atrial fibrillation Mother Parkinson disease Surgical History Surgical History Hx of cataract extraction Hx of colonoscopy (~2019) History of esophagogastroduodenoscopy (EGD) (~2019) Social History Social History Alcohol intake: current Alcohol intake frequency: a few times a week Patient Tobacco Use Status: Never used Tobacco Meds Allergies Allergy/AdvReac Type Severity Reaction Status Date / Time No Known Allergies Allergy Verified 09/13/24 08:58 Home Medications ?Medication ?Instructions ?Recorded ?Confirmed ?Last Taken ?Type allopurinol 300 mg tablet 300 mg PO DAILY 07/08/23 12/19/24 Unknown History sildenafil 100 mg tablet mg PO DIRECTED 09/13/24 Unknown History ascorbic acid (vitamin C) 500 mg 500 mg PO DAILY 12/19/24 12/19/24 Unknown History tablet (Vitamin C) cholecalciferol (vitamin D3) 25 25 mcg PO DAILY 12/19/24 12/19/24 Unknown History mcg (1,000 unit) capsule (Vitamin D3) Exam Height,Weight and Vital Signs: Height 6 ft Weight 99.337 kg Narrative Narrative: EKG 08/2024 Details: EKG with underlying sinus rhythm at 70/Min; nonspecific ST-T changes; normal MO and corrected QT. Per 08/2024 Cardiac office visit note In the transthoracic echocardiogram, LVEF of 60-65%. Mild left ventricle hypertrophy. Normal peak global longitudinal strain. There is description of inferior wall motion abnormality but upon my review I think it is within normal limits. In the exercise stress echocardiogram, he did almost 15 METS on Tor protocol. He did not have any angina. There were ST-T changes in the EKG with depression but the echocardiographic component did not show any suggestion of stress-induced wall motion abnormality. Diastolic parameters showed appropriate changes with exercise. At rest, there was borderline pulmonary artery pressure and there was slight increase with exercise but not worrisome. In the coronary CTA, 40% LAD stenosis related to a non calcific plaque-after D2 takeoff. Proximal RCA with less than 20% stenosis. Similar finding in mid/distal RCA junction. FFR was unremarkable overall. Assessment and Plan Assessment Anesthesia Assessment: Chart Reviewed
[2024-12-21 07:04] VITALS: BP 150/83; PULSE 73; RESP 18; TEMP 36.9; O2SAT 97; BMI 29.5
[2024-12-21] MEDS: Lactated Ringers 1,000 ML 100 ML IVCONT (07:25)
--- NOTE | 2024-12-21 07:59 | HO.ANESPROP2 ---
[facility] Active Problems Active Problems: All Active Problems Abnormal LFTs (Acute) Bicipital tendinitis, left shoulder (Acute) Snoring (Acute) Ascending aorta dilatation (Acute) Abnormal stress test (Acute) Precordial chest pain (Acute) Influenza A (Acute) Acute pharyngitis (Acute) Acute respiratory disease (Acute) Atherosclerotic cardiovascular disease (Acute) Past Medical History Medical History GERD (gastroesophageal reflux disease) Gout Anxiety CAD (coronary artery disease) Influenza A Acute pharyngitis Acute respiratory disease Atherosclerotic cardiovascular disease Functional capacity: independent ambulation Family History Family History Father Atrial fibrillation Mother Parkinson disease Family history of problems with anesthesia: No Surgical History Surgical History Hx of cataract extraction Hx of colonoscopy (~2019) History of esophagogastroduodenoscopy (EGD) (~2019) History of Problems with Anesthesia: No Social History Social History Alcohol intake: current Alcohol intake frequency: a few times a week Patient Tobacco Use Status: Never used Tobacco Have you been hit, kicked, punched, or otherwise hurt by someone within the past year? If so, by whom?: No Are you DNR?: No Advance Directives: No Advance Directives Information Provided: Yes Meds Allergies Allergy/AdvReac Type Severity Reaction Status Date / Time No Known Allergies Allergy Verified 09/13/24 08:58 Active Medications: Current Medications Lactated Ringer's (Lr) 1,000 mls @ 100 mls/hr IVCONT .Q10H BINH Last Admin: 12/21/24 07:25 Dose: 100 mls/hr Home Medications ?Medication ?Instructions ?Recorded ?Confirmed ?Last Taken ?Type allopurinol 300 mg tablet 300 mg PO DAILY 07/08/23 12/19/24 Unknown History sildenafil 100 mg tablet mg PO DIRECTED 09/13/24 Unknown History ascorbic acid (vitamin C) 500 mg 500 mg PO DAILY 12/19/24 12/19/24 Unknown History tablet (Vitamin C) cholecalciferol (vitamin D3) 25 25 mcg PO DAILY 12/19/24 12/19/24 Unknown History mcg (1,000 unit) capsule (Vitamin D3) Exam Height,Weight and Vital Signs: Height 6 ft Weight 98.6 kg Last Vital Signs Temp 98.5 F 12/21/24 07:04 Pulse 73 12/21/24 07:04 Resp 18 12/21/24 07:04 BP 150/83 H 12/21/24 07:04 Pulse Ox 97 12/21/24 07:04 O2 Del Method Room Air 12/21/24 07:04 Airway Mallampati Class: II TM Dist: >3cm Neck ROM: Full Heart: RRR Lungs: CTA Assessment and Plan Assessment Anesthesia Assessment: Anesthesia Plan Discussed Final Anesthetic Review Family History of Problems with Anesthesia: No History of Problems with Anesthesia: No ASA Class: II and III Final Preanesthetic Review: Consent Obtained/Reviewed Patient Risk: Low Procedure Risk: Low Anesthetic Plan Anesthetic Plan: MAC: Disposition: Standard PACU
--- NOTE | 2024-12-21 08:28 | MHC.SHP ---
Pre-Procedural Eval Section A - 24 Hr Update-Section A only Date of Service: 12/21/24 Section B - Complete if H&P > 30 days Chief Complaint: screening,hx maligalignant neoplasm Details of Present Illness: see H&P no changes Relevant Family History (Specify if Yes): No Present Medications: see Short Stay Collaborative assessment Medical History: No relevant PMH History of Previous Operations: No relevant previous surgery Allergies: Allergies Allergy/AdvReac Type Severity Reaction Status Date / Time No Known Allergies Allergy Verified 09/13/24 08:58 Review of Systems Sugical H&P ROS: Negative: Constitution, Cardiovascular, Respiratory, Neurological, Psychiatric, Hem-Onc, Allergic/Immunologic, Gastrointestinal, Genitourinary, Musculoskeletal, Integumentary, Endocrine and Eyes/Ears/Nose/Throat Exam Surgical H&P Exam: Normal: HEENT, Normal: Heart, Normal: Lungs, Normal: Extremities, Normal: Abdomen, Normal: Skin and Normal: Neurological Plan Diagnosis/Plan: Unchanged I have reviewed the history and physical and performed a pertinent physical examination on my patient. No changes have occurred unless specified. Time Spent With Patient Time: Total time managing care of this patient today ____ minutes.
[2024-12-21 09:05] VITALS: BP 101/46; PULSE 58; RESP 16; TEMP 36.1; O2SAT 95
--- NOTE | 2024-12-21 09:08 | P.BOP_ITS ---
Brief Operative Note Date of Service: 12/21/24 Pre-op diagnosis: screening Post-op diagnosis: same Procedure: colonoscopy Surgeon: Christian Rogers MD Anesthesia: MAC Was an Validation Technician used for this Procedure?: No Estimated blood loss (mL): 2 Pathology: other Condition: stable Disposition: PACU
[2024-12-21 09:20] VITALS: BP 105/57; PULSE 56; RESP 16; O2SAT 96
[2024-12-21 09:36] VITALS: BP 122/74; PULSE 55; RESP 16; TEMP 36.1; O2SAT 98
--- NOTE | 2024-12-21 10:15 | OP_ITS ---
DATE OF SERVICE: 12/21/2024 SURGEON: Christian Rogers MD INDICATIONS: Colon cancer screening and family history of colon cancer. PREOPERATIVE DIAGNOSIS: POSTOPERATIVE DIAGNOSIS: PROCEDURE PERFORMED: Colonoscopy to the terminal ileum with biopsy. ESTIMATED BLOOD LOSS: COMPLICATIONS: ANESTHESIA: Monitored anesthesia care. ASSISTANTS: SPECIMENS: DESCRIPTION OF PROCEDURE: History and physical was performed. The risks and benefits of the procedure were explained to the patient, and informed consent was obtained. The patient was placed in the left lateral decubitus position. A digital rectal exam was performed and was found to be normal. The Olympus pediatric video colonoscope was introduced into the rectum and advanced to the cecum. The cecum was identified by transillumination, palpation, and identification of ileocecal valve. Examination was performed. The scope was removed. He tolerated the procedure well and was taken to recovery area in stable condition. FINDINGS: The terminal ileum was examined and appeared normal. The visualized colonic mucosa was normal. The quality of the prep was good. A single polyp measuring less than 5 mm was identified at 15 cm from the anal verge. This was removed with biopsy forceps. No other polyps were seen. Retroflexed examination showed some hypertrophic anal papillae. IMPRESSION: Colon polyp. RECOMMENDATION: Followup the biopsy results. MD KYRA Mcwilliams/LEXIIL / [id number]
--- NOTE | 2024-12-21 10:38 | HO.POSTANES ---
Post Anesthesia Evaluation Post Anesthesia Evaluation Date of Service: 12/21/24 Vital Signs: Vital Signs Temp Pulse Resp BP Pulse Ox O2 Del Method 12/21/24 09:36 97 F 55 16 122/74 98 Room Air 12/21/24 09:20 56 16 105/57 L 96 Room Air 12/21/24 09:05 97 F 58 16 101/46 L 95 Room Air 12/21/24 07:04 98.5 F 73 18 150/83 H 97 Room Air Anesthesia: Monitored Pain Control: Satisfactory Nausea/Vomiting: None Hydration: Adequate Anesthesia-Related Issues: No Anes. Related Issues
== END 2024-12-21 09:56 | disposition home or self-care (01) ==
PROVIDERS: PCP Family Medicine; Visit Provider Internal Medicine Gastroenterology
PROC: 0DJD8ZZ Inspection of Lower Intestinal Tract, Via Natural or Artificial Opening Endoscopic (ICD-10-PCS; CPT 45378; principal; 2024-12-21 08:30)
DX: Z12.11 Encounter for screening for malignant neoplasm of colon (principal); Z80.0 Family history of malignant neoplasm of digestive organs; K63.5 Polyp of colon; K62.89 Other specified diseases of anus and rectum; K21.9 Gastro-esophageal reflux disease without esophagitis; R79.89 Other specified abnormal findings of blood chemistry; I25.10 Atherosclerotic heart disease of native coronary artery without angina pectoris; M10.9 Gout, unspecified; F41.9 Anxiety disorder, unspecified; Z79.899 Other long term (current) drug therapy
CPT/HCPCS: 45380; 88305; J2003; J2704

== ENCOUNTER 2024-12-26 09:59 | Outpatient (REF) | payer OTHER, SELFPAY ==
--- OUTSIDE RECORDS SUMMARY | 2024-12-21 04:30 | XMS_ITS ---
Author Organization [facility] Address [address] [place] [id number] Care Team Providers Care Traffic Control Officer Name Role Phone Titus Sims Primary Care Provider Christian Hamilton Jr [phone] REASON FOR VISIT screening,fam hx colon ca Encounters Encounter Location Date Provider Diagnosis [facility] [address] [place] [id number] 12/21/2024 Christian Rogers Jr Colon cancer screening [...] * NIVIALEATHAFREEMAN AlvarezDOB: [birth year] (54 yo M)Acc No.[id number]:12/21/2024 COLON WITH MAC Patient: FREEMAN KINNEY Provider: Juventino Rogers MD :[id number] A ge:54 Y S ex:Male Date:12/21/2024 Address:[address] [place] [address] [place]is [place]ANEL [id number] Pcp:Titus Sims Subjective: * Chief Complaints: * [...] 12/21/2024 Generated for Zafar ruffin/Amalia/Caraitting on: 0 12/26/2024 11:10 AM EDT
[2024-12-26 11:32] LABS: Alanine Aminotransferase 43 U/L (0-40); Albumin Level 4.4 g/dL (3.5-5.0); Alkaline Phosphatase 91 U/L (39-117); Aspartate Amino Transferase 36 U/L (5-37); Bilirubin Direct 0.2 mg/dL (0.0-0.5); Bilirubin Total 0.5 mg/dL (0.0-1.0); Total Protein 6.9 g/dL (6.5-8.0)
== END 2024-12-26 10:00 | disposition home or self-care (01) ==
LOC: HO.LAB 09:59
PROVIDERS: Visit Provider Internal Medicine
DX: R79.89 Other specified abnormal findings of blood chemistry (principal)
CPT/HCPCS: 36415; 80076

== ENCOUNTER 2024-12-27 08:48 | Outpatient (REF) | payer OTHER, SELFPAY ==
--- OUTSIDE RECORDS SUMMARY | 2024-12-21 04:30 | XMS_ITS ---
Author Organization [facility] Address [address] [place] [address] Care Team Providers Care Holistic Pulser Name Role Phone Titus Sims Primary Care Provider Christian Hamilton Jr REASON FOR VISIT screening,fam hx colon ca Encounters Encounter Location Date Provider Diagnosis [facility] Outpatient [address] [place] [phone] 12/21/2024 Christian Rogers Jr Colon cancer screening [...] Information Progress Notes * NIVIALEATHAFREEMAN AlvarezDOB: [birth year] (54 yo M)Acc No.[id number]:12/21/2024 COLON WITH MAC Patient: FREEMAN KINNEY Provider: Juventino Rogers MD :1970 A ge:54 Y S ex:Male Date:12/21/2024 Address:[address] [place] [address] [id number] Pcp:Titus Sims Subjective: * Chief Complaints: * 1 . Screening,fam hx colon ca. * Medical History: Objective: * Vitals: Assessment: * Assessment: 1. C olon cancer screening - Z12.11 (Primary) 2 . F amily history of colon cancer - Z80.0 3 . C olon polyps - K63.5 Plan: * Treatment: * Procedure Codes: 4 5380 COLONOSCOPY AND BIOPSY, 0529F INTRVL 3+YRS PTS CLNSCP DOCD * * The named appointment provid er may or may not be the originator of this progress note, and it is not deemed complete until electronically signed by the appointment provider. Sign off status: Pending * Provider: Juventino Rogers MD Date: 0 12/21/2024 Generated for Zafar ruffin/Amalia/Caraitting on: 0 12/27/2024 09:14 AM EDT
--- NOTE | ~2024-12-27 | US_ITS ---
CLINICAL HISTORY: ELEVATED LFTS US abdomen complete with color Doppler Comparison: None Findings: The visualized pancreas, aorta, and inferior vena cava are unremarkable. Liver normal size and mildly echogenic throughout. Right lobe 15.9 cm length. No focal hepatic masses. Common duct 2.0 mm diameter. Physiologic distention of the gallbladder. No gallstones or sludge. No gallbladder wall thickening. No pericholecystic fluid. No sonographic Swann sign. Main portal vein antegrade. Right kidney normal size, 10.1 cm in length. Normal cortical width and echotexture. No solid or cystic renal masses. No nephrolithiasis. No hydronephrosis. Left kidney normal, 10.5 cm in length. Normal cortical width and echotexture. No solid or cystic renal masses. No nephrolithiasis. No hydronephrosis. Spleen measures 10.6 cm. No splenic masses. No ascites. No lymphadenopathy. Impression: 1. Mild diffuse hepatic steatosis This document has been electronically signed by: Cj Harden MD on 12/27/2024 10:40:51
== END 2024-12-27 08:49 | disposition home or self-care (01) ==
LOC: HO.US 08:48
PROVIDERS: PCP Family Medicine; Visit Provider Internal Medicine Gastroenterology
DX: R79.89 Other specified abnormal findings of blood chemistry (principal)
CPT/HCPCS: 76700

== ENCOUNTER → 2024-12-27 08:58 | Outpatient (BNV) | payer OTHER, SELFPAY | PROVIDERS: PCP Family Medicine; Visit Provider Radiology Diagnostic Radiology | DX: R74.01 Elevation of levels of liver transaminase levels (principal) | CPT/HCPCS: 76700 ==

== ENCOUNTER 2025-04-10 15:18 | Emergency (ER) | payer OTHER, SELFPAY ==
[2025-04-10] VITALS (7 sets, daily range): BP systolic 131–174; BP diastolic 73–82; PULSE 62–85; RESP 13–18; TEMP 36.6–36.7; O2SAT 99–100; BMI 29.9
--- NOTE | ~2025-04-10 | CT_ITS ---
CLINICAL HISTORY: dizziness, headache CT angiography head and neck with contrast. 3D Postprocessing. Comparison: None provided Findings: Aortic arch and cervical great vessels are patent with no aneurysm, dissection, hemodynamically significant stenoses, or occlusion. Intracranial arteries are patent. No aneurysm, dissection, hemodynamically significant stenoses, or occlusion. No abnormal intracranial enhancement. The visualized thyroid gland is unremarkable. No cervical mass or fluid collection. Lung apices clear. No acute fracture. IMPRESSION: Patent head and neck CTA. This document has been electronically signed by: Rafael Sanchez MD on 04/10/2025 18:08:18
--- NOTE | 2025-04-10 15:21 | ECG_ITS ---
Test Reason : DIZZINESS Blood Pressure : */* mmHG Vent. Rate : 79 BPM Atrial Rate : 90 BPM P-R Int : 162 ms QRS Dur : 80 ms QT Int : 366 ms P-R-T Axes : 50 43 60 degrees QTcB Int : 419 ms Sinus rhythm with Premature atrial complexes Nonspecific ST and T wave abnormality Abnormal ECG When compared with ECG of 17-Aug-2021 11:10, Premature atrial complexes are now Present Referred By: Allie Fernandez Electronically Signed By: QUIANA JASSO
--- NOTE | 2025-04-10 15:22 | ED.GENADULT ---
[facility] - General Adult General Chief complaint: Dizziness Stated complaint: dizziness, headache, sent from Dr Reyes Seen by Provider: 04/10/25 15:29 History of Present Illness ED Provider: Wade FLORES narrative: The patient is a 54-year-old male. He has a history of a partial coronary lesion, a 40% lesion that was found as part of a workup for chest discomfort. He was placed on atorvastatin as a result. This was a proximally 2 years ago. He also has a history of gout. He is not on medication for blood pressure or diabetes. The patient says that he has had some discomfort in his left temporal fossa for about 2 or 3 days. Last night he had what he felt was episodes of positional dizziness associated with some nausea. He says that at around 03:00 he was lying in bed when he felt there was a room spinning dizziness. He got up and went to the bathroom thinking that might help. However when he got back into bed and laid down again the spinning returned. Ultimately he was able to find a position in which the spinning seemed less severe and he was able to fall asleep again. When he woke up in the morning he was not still experiencing the dizziness. He continues to have some mild left-sided head pain today. No associated nausea or vomiting. No fever, sweats, chills. No neck stiffness. 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 Today he was at a meeting at the hospital when he mentioned his symptoms to coworkers. He was advised to see his doctor. He went to see his de icer element winder who did an EKG that was apparently unremarkable. The patient was advised to come to the emergency room for further evaluation. Related Data Home Medications ?Medication ?Instructions ?Recorded ?Confirmed allopurinol 300 mg tablet 300 mg PO DAILY 07/08/23 12/19/24 sildenafil 100 mg tablet mg PO DIRECTED 09/13/24 ascorbic acid (vitamin C) 500 mg 500 mg PO DAILY 12/19/24 12/19/24 tablet (Vitamin C) cholecalciferol (vitamin D3) 25 25 mcg PO DAILY 12/19/24 12/19/24 mcg (1,000 unit) capsule (Vitamin D3) Previous Rx's ?Medication ?Instructions ?Recorded rosuvastatin 20 mg tablet 20 mg PO DAILY #90 tabs 08/14/24 oseltamivir 75 mg capsule (Tamiflu) 75 mg PO BID 5 days #10 caps 09/13/24 Allergies Allergy/AdvReac Type Severity Reaction Status Date / Time No Known Allergies Allergy Verified 04/10/25 15:24 Review of Systems Review of Systems: Yes all other systems are reviewed and are negative [facility] Past Medical History Medical History GERD (gastroesophageal reflux disease) Gout Anxiety CAD (coronary artery disease) Influenza A Acute pharyngitis Acute respiratory disease Atherosclerotic cardiovascular disease Surgical History Hx of cataract extraction Hx of colonoscopy (~2019) History of esophagogastroduodenoscopy (EGD) (~2019) Family History Family History Father Atrial fibrillation Mother Parkinson disease Social History Social History Alcohol intake: current Alcohol intake frequency: 0-2 drinks per day Patient Tobacco Use Status: Never used Tobacco Physical Exam ED Vital Signs: Vital Signs - 24 hr 04/10/25 15:22 04/10/25 15:44 04/10/25 16:35 Temperature 97.8 F 98.1 F Pulse Rate 72 85 70 Respiratory Rate 18 13 Blood Pressure 174/81 H 157/82 H 150/75 H Pulse Oximetry 99 100 Oxygen Delivery Method Room Air Room Air 04/10/25 16:36 04/10/25 16:38 04/10/25 17:35 Temperature 97.8 F Pulse Rate 65 66 70 Respiratory Rate 14 Blood Pressure 131/76 139/78 138/77 Pulse Oximetry 100 Oxygen Delivery Method Room Air 04/10/25 19:00 Temperature 97.8 F Pulse Rate 62 Respiratory Rate 14 Blood Pressure 141/73 H Pulse Oximetry 100 Oxygen Delivery Method Room Air BMI result Body Mass Index 29.9 Const Other: The patient is a 54-year-old male who was awake and alert. He is a robustly built 54-year-old who is pleasant and cooperative. He does not appear in obvious distress. HENMT Other: The face is symmetrical. ?Mucous membranes moist. No significant TMJ tenderness. Tympanic membranes are normal. Eyes Other: Pupils are round equal, conjunctivae are clear, extraocular movements intact. No appreciated nystagmus. Visual Urban: normal visual urban by confrontation Neck Neck: Yes normal visual inspection, Yes full ROM, Yes no lymphadenopathy and Yes no JVD Resp Effort & Inspection: normal respiratory effort Auscultation: clear to auscultation bilaterally Cardio Rate: regular rate Rhythm: regular rhythm Heart sounds: S1 normal heart sound present and S2 normal heart sound present GI Other: Abdomen is soft and nontender Skin Other: The skin is dry and unremarkable Neuro Other: The patient is awake and alert with a normal mental status. He has a benign demeanor. Pupils are round, equal, and reactive to light, extraocular movements intact, no appreciated nystagmus, visual urban are intact to confrontation, the face is symmetrical, speech is clear and normal, tongue is midline. His strength is 5/5 in all extremities. No pronator drift. Finger-nose is normal. Heel-bullock is normal. Gait is steady. NIH stroke scale is 0. Extrem Other: There is no calf swelling or tenderness. No asymmetry. No peripheral edema. Course Course Course Narrative: This is an RME: Additional HPI, ROS, PE not included below will be deferred to primary provider. RME assessment and note performed by: Allie Fernandez PA-C This is a [id number]-male, with a hx of atherosclerotic cardivascular disease, fatty liver, here with complaints of dizziness. Symptoms started at 4:00 a.m. this morning, reports that he felt dizzy while he was lying down however upon standing this improved. He is neurologically intact, no focal deficits on examination. Discussed case with Dr. Olvera, patient brought back to main emergency department Plan: Labs, EKG, further ER evaluation needed Medications Administered Discontinued Medications Generic Name Dose Route Start Last Admin Trade Name Freq PRN Reason Stop Dose Admin Sodium Chloride 1,000 mls @ 999 mls/hr 04/10/25 17:45 04/10/25 18:48 Ns IV 04/10/25 18:45 Infused .Q1H1M BINH Infusion Iohexol 100 ml 04/10/25 17:34 04/10/25 17:35 Iohexol 350 Mg/Ml 100 Ml Infus..Btl IV 04/10/25 17:35 70 ml ONCE ONE Administration Medical Decision Making Medical Decision Making MDM Narrative: The patient is a 54-year-old male who was on atorvastatin. A few years ago he had some chest pain and his workup ultimately revealed some mild coronary disease. Otherwise he is quite healthy and active. He presents today having had some unusual episodes of dizziness early this morning in the middle of the night. He also has a mild left-sided head pain today. He has had no recurrence of the room spinning dizziness he experienced at 03:00. The patient has a an unremarkable neurological exam. I do not find any neurological abnormalities to suggest that he might have had a stroke. He is not currently exhibiting any dizziness or gait unsteadiness. A noncontrast head CT and a CT angiogram of the head and neck do not show any acute findings. My overall impression is that I do not think he is having a stroke and I do not think it is unlikely his symptoms early this morning represent a TIA. There was no evidence of any kind of dissection to account for his headache. Additionally an ESR is normal. The patient was essentially asymptomatic in the emergency room and I felt he looked well. I think he may be discharged to follow up with his PCP to discuss this episode further. He should return to the emergency room if worse. Lab Data 04/10/25 16:26 04/10/25 16:26 Labs: Lab Results 04/10/25 Range/Units 16:26 WBC 5.2 (4.8-10.8) X10*3/uL RBC 5.04 (4.60-5.80) X10*6/uL Hgb 14.8 (14.0-18.0) g/dl Hct 42.1 (42.0-52.0) % MCV 83.5 (80.0-98.0) fL MCH 29.4 (27.0-33.0) pg MCHC 35.2 (31.0-36.0) g/dl RDW 13.0 (11.0-16.0) % Plt Count 174 (160-400) X10*3/uL MPV 9.9 (9.4-12.4) fL Immature Gran % (Auto) 0.2 (0.0-0.4) % Neut % (Auto) 59.7 (45-73) % Lymph % (Auto) 26.0 (20-40) % Irwin % (Auto) 10.2 (2-11) % Eos % (Auto) 3.1 (0-4) % Baso % (Auto) 0.8 (0-2) % Lymph # (Auto) 1.4 (1.2-4.9) X10*3/uL Irwin # (Auto) 0.5 (0.1-1.2) X10*3/uL Eos # (Auto) 0.2 (0.0-0.4) X10*3/uL Baso # (Auto) 0.0 (0.0-0.2) X10*3/uL Abs Immat Gran (auto) 0.01 (0.00-0.03) X10*3/uL Absolute Neuts (auto) 3.1 (2.0-8.3) x10*3/uL Absolute Nucleated RBC 0.000 (0.0-0.012) X10*3/uL Nucleated RBC % (auto) 0.0 (0.0-0.2) /100WBC ESR 7 (0-15) MM/HR Sodium 143 (135-145) mmol/L Potassium 4.0 (3.3-5.1) mmol/L Chloride 109 H (96-108) mmol/L Carbon Dioxide 28 (22-29) mmol/L Anion Gap 10 L (12-20) BUN 16 (9-16) mg/dL Creatinine 1.09 (0.5-1.4) mg/dL Estim Creat Clear Calc 93.7 Estimated GFR > 60 Random Glucose 109 (60-115) mg/dL Calcium 9.2 (8.4-10.2) mg/dL Magnesium 2.2 (1.6-2.6) mg/dL Total Bilirubin 0.4 (0.0-1.0) mg/dL Direct Bilirubin 0.2 (0.0-0.5) mg/dL AST 34 (5-37) U/L ALT 39 (0-40) U/L Alkaline Phosphatase 103 (39-117) U/L Troponin I High Sens 3.2 (<3.5-35.0) ng/L Total Protein 6.9 (6.5-8.0) g/dL Albumin 4.5 (3.5-5.0) g/dL Independent Interpretation I performed an independent interpretation of an: EKG Interpretation: EKG at 15:52 shows sinus rhythm with PACs with a ventricular rate of 79 beats per minute. No definite acute ischemic changes are present. Discharge Plan Discharge Clinical Impression: Headache, Dizziness Patient Disposition: Home, Self-Care Additional Instructions: Your testing in the emergency room today seems reassuring. Please continue your regular medications. Please plan on following up with your regular doctor to discuss this episode further. Please call your doctor's office in the morning to set up a prompt follow up appointment. Return to the emergency room if significantly worse. Prescriptions: No Action rosuvastatin 20 mg tablet 20 mg PO DAILY Qty: 90 3RF oseltamivir [Tamiflu] 75 mg capsule 75 mg PO BID 5 Days Qty: 10 0RF ascorbic acid (vitamin C) [Vitamin C] 500 mg Tablet 500 mg PO DAILY cholecalciferol (vitamin D3) [Vitamin D3] 25 mcg (1,000 unit) Capsule 25 mcg PO DAILY allopurinol 300 mg tablet 300 mg PO DAILY sildenafil 100 mg tablet PO DIRECTED Referrals: Titus Sims MD [Primary Care Provider, Internal Medicine] Interventions: ED Discharge Assessment Last Done: 04/10/25 19:00 Discharge Date/Time: 04/10/25 19:01 Print Language: Portuguese
[2025-04-10 16:32] LABS: MANUAL DIFF FLAG NO
--- NOTE | 2025-04-10 16:36 | PC.NURSE ---
Pt reporting left sided headache and dizziness starting during the night and continuing today. No unilateral weakness, slurred speech or facial droop noted. Denying SOB, CP, recent illnesses. NSR on bedside quality assurance monitor chassis.
[2025-04-10 16:39] LABS: Hematocrit 42.1 % (42.0-52.0); Hemoglobin 14.8 g/dl (14.0-18.0); Imm Gran Abs Auto 0.01 X10*3/uL (0.00-0.03); Imm Gran Pct Auto 0.2 % (0.0-0.4); Lymphocytes Absolute Auto 1.4 X10*3/uL (1.2-4.9); Mean Corpuscular HGB Conc 35.2 g/dl (31.0-36.0); Mean Corpuscular Hemoglobin 29.4 pg (27.0-33.0); Mean Corpuscular Volume 83.5 fL (80.0-98.0); NRBC Abs Auto 0.000 X10*3/uL (0.0-0.012); NRBC Pct Auto 0.0 /100WBC (0.0-0.2); Platelet Count 174 X10*3/uL (160-400); Red Blood Count 5.04 X10*6/uL (4.60-5.80); White Blood Count 5.2 X10*3/uL (4.8-10.8)
[2025-04-10 16:50] LABS: Alanine Aminotransferase 39 U/L (0-40); Albumin Level 4.5 g/dL (3.5-5.0); Alkaline Phosphatase 103 U/L (39-117); Anion Gap 10 (12-20); Aspartate Amino Transferase 34 U/L (5-37); Blood Urea Nitrogen 16 mg/dL (9-16); Calcium 9.2 mg/dL (8.4-10.2); Carbon Dioxide 28 mmol/L (22-29); Chloride 109 mmol/L (96-108); Creatinine Clr Calc Pharmacy 93.7; Estimated Glomerular Filt Rate > 60; Magnesium 2.2 mg/dL (1.6-2.6); Potassium 4.0 mmol/L (3.3-5.1); Sodium 143 mmol/L (135-145); Total Protein 6.9 g/dL (6.5-8.0)
[2025-04-10 16:57] LABS: Troponin-I High Sensitivity 3.2 ng/L (<3.5-35.0)
[2025-04-10] MEDS: iohexoL 350 MG/ML 100 ML INFUS..BTL IV (17:35)
== END 2025-04-10 19:01 | disposition home or self-care (01) ==
PROVIDERS: Physician Assistant Medical; Emergency Provider Emergency Medicine; PCP Family Medicine
DX: R51.9 Headache, unspecified (principal); R42 Dizziness and giddiness; R07.9 Chest pain, unspecified
CPT/HCPCS: 36415; 70496; 70498; 80048; 80076; 83735; 84484; 85025; 85652; 93005; 96360; 99285; Q9967

== ENCOUNTER 2025-04-10 15:40 | Outpatient (AMB) | payer OTHER, SELFPAY ==
--- NOTE | 2025-04-10 15:25 | AM.OFFVISNUR ---
Intake Visit Reasons: ekg- elv bp,numbness face, headache Allergies No Known Allergies Allergy (Verified 04/10/25 15:24) Nursing Note Pt came to us as he had been having numbness and pain on his left side of his head from his eye up. He has had dizziness and some nausea. He had been running higer BP 158/70, then after talking with him came down 148/68. Pt ekg was normal sinus rhythm. Discussed with the pt that ekg is good but we don't know if there is something going on in his head. Discussed with pt that he should go down and get checked out in the ER to be sure that there is nothing wrong. It is always best to be sure than have something wrong. DR boucher agreed and I walked him down to the ER. Coding
== END 2025-04-10 15:42 | disposition home or self-care (01) ==
LOC: HO.HCS 15:40
PROVIDERS: PCP Family Medicine; Visit Provider Internal Medicine
DX: I49.1 Atrial premature depolarization (principal)
CPT/HCPCS: 93010

== ENCOUNTER → 2025-04-10 16:07 | Outpatient (BNV) | payer OTHER, SELFPAY | PROVIDERS: Emergency Provider Emergency Medicine; PCP Family Medicine; Visit Provider Specialist | DX: R42 Dizziness and giddiness (principal); R51.9 Headache, unspecified | CPT/HCPCS: 70496; 70498 ==

== ENCOUNTER 2025-07-09 08:01 | Outpatient (REF) | payer OTHER, SELFPAY ==
--- OUTSIDE RECORDS SUMMARY | 2024-12-21 03:30 | XMS_ITS ---
Author Organization [facility] Address [address] [place] [address] Care Team Providers Care Shotgun Shell Reprinting Unit Operator Name Role Phone Titus Sims Primary Care Provider Christian Hamilton Jr REASON FOR VISIT screening,fam hx colon ca Encounters Encounter Location Date Provider Diagnosis [facility] [address] [place] [phone] 12/21/2024 Christian Rogers Jr Colon cancer screening Z12.11 ; Family history of colon cancer Z80.0 and Colon polyps K63.5 Assessments Encounter Date Diagnosis (ICD Code) Assessment Notes Treatment Notes Treatment Clinical Notes Section Notes 12/21/2024 Colon cancer screening (ICD-10 - Z12.11) 12/21/2024 Family history of colon cancer (ICD-10 - Z80.0) 12/21/2024 Colon polyps (ICD-10 - K63.5) Plan Of Treatment No Information Progress Notes * NIVIALEATHAFREEMAN AlvarezDOB: 9 (55 yo M)Acc No.[id number]:12/21/2024 COLON WITH MAC Patient: FREEMAN KINNEY Provider: Juventino Rogers MD :1970 A ge:54 Y S ex:Male Date:12/21/2024 Address:[address] [place] [address] [id number] Pcp:Titus Sims Subjective: * Chief Complaints: * S creening,fam hx colon ca Assessment: * Assessment: 1. C olon cancer screening - Z12.11 (Primary) 2 . F amily history of colon cancer - Z80.0 3 . C olon polyps - K63.5 Plan: * Procedure Codes: 4 5380 COLONOSCOPY AND [id number] INTRVL 3+YRS PTS CLNSCP DOCD Billing Information: * Procedure Codes: 00050 COLONOSCOPY AND BIOPSY. 0529F INTRVL 3+YRS PTS CLNSCP DOCD. * The named appointment provid er may or may not be the originator of this progress note, and it is not deemed complete until electronically signed by the appointment provider. Sign off status: Pending * Provider: Juventino Rogers MD Date: 0 12/21/2024 Generated for Zafar ruffin/Amalia/Marija on: 1 09:27 AM EST
[2025-07-09 08:41] LABS: MANUAL DIFF FLAG NO
[2025-07-09 08:50] LABS: Hematocrit 44.7 % (42.0-52.0); Hemoglobin 15.1 g/dl (14.0-18.0); Imm Gran Abs Auto 0.02 X10*3/uL (0.00-0.03); Imm Gran Pct Auto 0.4 % (0.0-0.4); Lymphocytes Absolute Auto 1.7 X10*3/uL (1.2-4.9); Mean Corpuscular HGB Conc 33.8 g/dl (31.0-36.0); Mean Corpuscular Hemoglobin 28.7 pg (27.0-33.0); Mean Corpuscular Volume 85.0 fL (80.0-98.0); NRBC Abs Auto 0.000 X10*3/uL (0.0-0.012); NRBC Pct Auto 0.0 /100WBC (0.0-0.2); Platelet Count 181 X10*3/uL (160-400); Red Blood Count 5.26 X10*6/uL (4.60-5.80); White Blood Count 5.4 X10*3/uL (4.8-10.8)
--- OUTSIDE RECORDS SUMMARY | 2025-07-09 09:27 | XMS_ITS | Patient Health Record ---
Author Organization [facility] Address [address] [place] [address] Care Team Providers Care Cytology Technologist Name Role Phone Titus Sims Primary Care Provider Christian Hamilton Jr Allergies No Known Allergies Results Component Value Reference Range Notes Pathology Reviewed date:12/28/2024 03:46:12 PM Interpretation: Performing Lab:[facility], [address] [place] [id number] Notes/Report: US abdomen complete Reviewed date:12/28/2024 07:21:09 AM Interpretation: Performing Lab: Notes/Report: [address] [address] Ultrasound Report Signed Patient: Freeman Nagel MR#: [id number] 44 : 1970 Acct:[id number] Age/Sex: 54 / M ADM Date: 12/27/24 Loc: HO.US Attending Dr: Christian Rogers MD Ordering Physician: Christian Rogers MD Date of Service: 12/27/24 Procedure(s): US abdomen complete Accession Number(s): [id number] cc: Christian Rogers MD; Titus Sims MD CLINICAL HISTORY: ELEVATED LFTS US abdomen complete with color Doppler Comparison: None Findings: The visualized pancreas, aorta, and inferior vena cava are unremarkable. Liver normal size and mildly echogenic throughout. Right lobe 15.9 cm length. No focal hepatic masses. Common duct 2.0 mm diameter. Physiologic distention of the gallbladder. No gallstones or sludge. No gallbladder wall thickening. No pericholecystic fluid. No sonographic Swann sign. Main portal vein antegrade. Right kidney normal size, 10.1 cm in length. Normal cortical width and echotexture. No solid or cystic renal masses. No nephrolithiasis. No hydronephrosis. Left kidney normal, 10.5 cm in length. Normal cortical width and echotexture. No solid or cystic renal masses. No nephrolithiasis. No hydronephrosis. Spleen measures 10.6 cm. No splenic masses. No ascites. No lymphadenopathy. Impression: 1. Mild diffuse hepatic steatosis This document has been electronically signed by: Cj Harden MD on 12/27/2024 10:40:51 Dictated By: Cj Harden MD Signed By: <Electronically signed by Cj Harden MD in OV> 12/27/24 1041 DD/ 1040 TD/TT: 12/27/24 1040 Medical Practice Assistant: Reason For Referral No Information Medications Medication SIG (Take, Route, Frequency, Duration) Notes Start Date End Date Status Sildenafil Citrate 100 MG Tablet TAKE 1 TABLET BY MOUTH EVERY DAY 1 HOUR PRIOR TO SEXUAL ACTIVITY Oral; Duration: 30 Days Active Vitamin C 500 MG Capsule as directed Ora lly as needed Active Rosuvastatin Calcium 20 MG Tablet TAKE 1 TABLET BY MOUTH EVERY DAY Oral; Duration: 90 Days Active Allopurinol 300 MG Tablet 1 tablet Orall y Once a day Active Vitamin D 25 MCG (1000 UT) Tablet 1 tablet Orally Once a day/ as needed Active Immunizations Vaccine Route Administration Date Status Comme nts Influenza Unknown 04/10/2019 Administered Social History Tobacco Use: Social History Observation Description Date Details (start date - stop date) Never Smoker NA - NA Social History Drugs/Alcohol: Social Info Question Answer Notes Alcohol Screen Did you have a drink containing alcohol in the past year? Yes How often did you have a drink containing alcohol in the past year? 2 to 3 times a week (3 points) How many drinks did you have on a typical day when you were drinking in the past year? 3 or 4 drinks (1 point) How often did you have 6 or more drinks on one occasion in the past year? 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 [employer] Problems Problem Type SNOMED Code ICD Code Onset Dates Problem Status W/U Status Risk Notes Problem Colon cancer screening (404123838) Colon cancer screening (Z12.11) Active confirmed Problem Gastroesophageal reflux disease without esophagitis (737877541) Gastroesophageal reflux disease without esophagitis (K21.9) Active confirmed Problem Family History of Cancer of Colon (Situation) (712873575) Family history of colon cancer (Z80.0) Active confirmed Vital Signs Blood pressure diastolic 77 mm Hg 11/15/2024 Height 72 in 11/15/2024 Blood pressure systolic 111 mm Hg 11/15/2024 Weight 219 lbs 11/15/2024 BMI 29.7 kg/m2 11/15/2024 Encounters Encounter Location Date Provider Diagnosis [facility] Outpatient [address] [place] [id number] 12/21/2024 Christian Rogers Jr Colon cancer screening Z12.11 ; Family history of colon cancer Z80.0 and Colon polyps K63.5 [facility] [address] [place] [phone] 11/15/2024 Christian Rogers Jr Gastroesophageal reflux disease without esophagitis K21.9 ; Colon cancer screening Z12.11 ; Family history of colon cancer Z80.0 and Elevated LFTs R79.89 [facility] [address] [place] [phone] 12/28/2024 Christian Rogers Jr [facility] [address] [place] [phone] 12/28/2024 Christian Rogers Jr Assessments Encounter Date Diagnosis (ICD Code) Assessment Notes Treatment Notes Treatment Clinical Notes Section Notes 12/21/2024 Colon cancer screening (ICD-10 - Z12.11) 12/21/2024 Family history of colon cancer (ICD-10 - Z80.0) 11/15/2024 Colon cancer screening (ICD-10 - Z12.11) [...] ultrasound imaging and this will be scheduled. 12/21/2024 Colon polyps (ICD-10 - K63.5) 11/15/2024 Elevated LFTs (ICD-10 - R79.89) We [...] GI ENDOSCOPY 06/20/2019 COLONOSCOPY 06/20/2019 COLONOSCOPY 11/15/2024 Insurance Providers Payer Name Payer Address Payer Phone Subscriber Number Group Number Insured Name Patient Relationship to Insured Coverage Start Date Coverage End Date [employer] [place] [address] [address] [place] [address] [id number] FREEMAN CIFUENTES Self - patient is the insured Medical (General) History Medical History History ICD Code Coronary artery disease, nonobstructive Anxiety Gout Gastroesophageal reflux dise ase, EGD 2/20, no H. pylori or Cannon's esophagus Colonoscopy 08/30, normal, 5-year follow- up for family history Surgical History Surgery Date(Month/Year) cataract removal dental/implants/wisdom mouth as child
--- OUTSIDE RECORDS SUMMARY | 2025-07-09 09:27 | XMS_ITS | Patient Health Record ---
Author Organization [facility] [place] Address [address] [place], [place] [address] Care Team Providers Care Home Health Speech Therapist Name Role Phone Jw Brady MD Primary Care Provider Unavailab Terry Maxwell Unavailable [phone] Reason For Referral No Information Medications Medication SIG (Take, Route, Frequency, Duration) Notes Start Date End Date Status Piroxicam 20 MG 1 capsule with food Orally Once a day; Duration: 30 day(s) 12/27/2011 Not-Taking Colchicine 0.6 MG 1 tablet Orally Once a day; Duration: 10 days 06/24/2016 Active Vitamin D Active Vitamin C Active Prednisone 10 mg last day Not-Taking Social History Tobacco use other than smoking: Question Answer Notes Are you an other tobacco user? No Problems Problem Type SNOMED Code ICD Code Onset Dates Problem Status W/U Status Risk Notes Problem Gout (18348298) Gout, unspecified (M10.9) Active confirmed Plan Of Treatment Pending Test Test Name Order Date *Uric Acid, Serum 06/21/2016 ESR 06/21/2016 X ray : Foot, left 3V 11/29/2011 17429 I&D ABSCESS- SIMPLE,SINGLE 012 42185 I&D ABSCESS- SIMPLE,SINGLE 012 39982, [id number]/INJECT, JOINT/BURSA 1 08/25/2015 Insurance Providers Payer Name Payer Address Payer Phone Subscriber Number Group Number Insured Name Patient Relationship to Insured Coverage Start Date Coverage End Date [facility] [id number] [address] [address] [place] [phone] [id number] Javier Nagel Self - patient is the insured Medical (General) History Medical History History ICD Code reflux Gout chicken pox Arthritis Broken bones Surgical History Surgery Date(Month/Year) wisdom teeth extraction root canal
[2025-07-09 10:19] LABS: Alanine Aminotransferase 48 U/L (0-40); Albumin Level 4.5 g/dL (3.5-5.0); Alkaline Phosphatase 101 U/L (39-117); Anion Gap 11 (12-20); Aspartate Amino Transferase 43 U/L (5-37); Blood Urea Nitrogen 18 mg/dL (9-16); Calcium 9.5 mg/dL (8.4-10.2); Carbon Dioxide 28 mmol/L (22-29); Chloride 105 mmol/L (96-108); Cholesterol 156 mg/dL (<200); Estimated Glomerular Filt Rate > 60; HDL Cholesterol 51 mg/dL (>40); Potassium 4.2 mmol/L (3.3-5.1); Sodium 140 mmol/L (135-145); Total Protein 7.3 g/dL (6.5-8.0); Triglycerides 143 mg/dL (<150)
[2025-07-09 10:52] LABS: Uric Acid 4.5 mg/dL (3.4-7.0)
== END 2025-07-09 08:02 | disposition home or self-care (01) ==
LOC: HO.LAB 08:01
PROVIDERS: PCP Family Medicine; Visit Provider Family Medicine
DX: R68.82 Decreased libido (principal); E78.5 Hyperlipidemia, unspecified; M1A.9XX0 Chronic gout, unspecified, without tophus (tophi); Z12.5 Encounter for screening for malignant neoplasm of prostate; Z13.1 Encounter for screening for diabetes mellitus
CPT/HCPCS: 36415; 80053; 80061; 84153; 84402; 84403; 84550; 85025